=== PATIENT | male | born 1930 | race Caucasian/White ===

== ENCOUNTER 2018-03-12 14:52 | Emergency (ER) | payer MEDICARE ==
[2018-03-12] MEDS ORDERED: HYDROcodone/Acetaminophen 5/325 mg Tablet ONE ×2 (17:07→17:11)
--- NOTE | 2018-03-12 17:09 | CT ---
CT CERVICAL SPINE: 03/12/[address] of the cervical spine was performed following trauma. Axial slices were acquired, then crystal nal and sagittal reconstructions were done. The patient has obviously had prior surgery with an anter ior cervical fusion at the C3 through C6 levels. I do not have any prior scans available for comparis on, however. There is a defect in the anterior arch of C1 in the midline with a considerable amount of pannus seen posterior to the dens of C2. This defect is most likely an old injury, however, on scan 20, one sees a sharper line in the right posterior arch of C1 that I cannot exclude being acute. The C1 to dens d istance is normal and the lateral masses or C1 are not significantly displaced. At C2-C3, there is significant right foraminal narrowing and mild left foraminal narrowing due to ost eophytes. Facet arthritis is very prominent at this level on the right side. At C3-C4, there is mild bilateral foraminal narrowing. At C4-C5, there is moderate foraminal narrowing on the right and mild on the left. At C5-C6, there is mild to moderate bilateral foraminal narrowing. At C6-C7, there is severe bilateral foraminal narrowing and significant facet arthritis there. Below this level, it is difficult to assess the foramina well. No fractures were seen elsewhere in the cerv ical spine. There is really no soft tissue swelling to speak of. No central canal stenosis was seen a t any level. The lung apices were clear and showed no sign of a pneumothorax. IMPRESSION: 1. Defect in the anterior arch of C1 which may be old, but there is a sharp line in the right po sterior arch of C1 that could be acute. I feel it has to be considered acute until proven otherwise. 2. Anterior cervical fusion at C3 through C6. 3. Multilevel degenerative changes with foraminal narrowing at multiple levels as described kareem harrell. Findings discussed with Dr. Irene at [id number] after discussing case further with a corporate travel consultant at [facility]. POS: HOME
--- NOTE | 2018-03-12 17:11 | CT ---
CT OF THE BRAIN WITHOUT CONTRAST 03/12/18 Atrophy and diffuse chronic ischemic changes are seen in the brain. No extra-axial hematoma or parenc hymal hemorrhage was apparent. There is no sign of acute stroke, mass or edema. The calvarium appears intact. The sphenoid sinus and mastoid air cells are clear. IMPRESSION: Atrophy and chronic ischemic changes but no acute findings. Preliminary report discussed with Dr. Irene at 1614 on 03/12/18. POS: HOME
[2018-03-12] MEDS ORDERED: HYDROcodone/Acetaminophen 5/325 mg Tablet PO SCH (17:15)
--- NOTE | 2018-03-12 17:15 | CT ---
CT OF THE FACIAL BONES 03/12/18 Soft tissue swelling is seen, particularly anterior to the left frontal bone. The underlying bones al l appeared intact. No facial fractures were identified. The zygomatic arches, orbital rims, and nasal bones appeared intact. The retro-orbital areas appear normal. There are numerous areas of mucosal sw elling in the various paranasal sinuses and there may even be polyps in some of them. IMPRESSION: 1. Exterior soft tissue swelling but no acute facial fracture seen. 2. Chronic sinus disease as noted. Findings discussed with Dr. Irene at 1614 on 03/12/18. POS: HOME
== END 2018-03-12 17:17 | disposition home or self-care (01) ==
LOC: BURERS 14:52
DX: S19.9XXA Unspecified injury of neck, initial encounter (principal); W01.0XXA Fall on same level from slipping, tripping and stumbling without subsequent striking against object, initial encounter
CPT/HCPCS: 70450; 70486; 72125

== ENCOUNTER 2019-03-15 16:15 | Inpatient (IN) | payer MEDICARE ==
[2019-03-15] MEDS: HYDROcodone/Acetaminophen 5/325 mg Tablet PO PRN (21:18)
[2019-03-15] MEDS: Rifampin 150 MG CAP PO SCH (23:21)
[2019-03-15] MEDS: Enoxaparin Sodium 40 MG/0.4 ML SYRINGE SC SCH (23:22)
[2019-03-16] MEDS: HYDROcodone/Acetaminophen 5/325 mg Tablet PO PRN ×2 (02:06→11:05)
[2019-03-16] MEDS: Vancomycin HCl 1 GM in Sodium Chloride 0.9% 250 ML 250 ML IVPB SCH ×2 (08:07→21:38)
[2019-03-16] MEDS: Famotidine 20 MG TAB PO SCH ×2 (08:12→21:36)
[2019-03-16] MEDS: Gabapentin 300 MG CAP PO SCH ×3 (08:13→21:35)
[2019-03-16] MEDS: Finasteride 5 MG TAB PO SCH (08:13)
[2019-03-16] MEDS: Saccharomyces boulardii 250 MG CAP PO SCH (08:13)
[2019-03-16] MEDS: Aspirin 81 mg Enteric Coated Tablet PO SCH (08:13)
[2019-03-16] MEDS: CEFTAROLINE 600 MG IVPB SCH ×2 (10:59→19:44)
[2019-03-16] MEDS: Rifampin 150 MG CAP PO SCH ×2 (11:03→21:36)
[2019-03-16] MEDS ORDERED: Haloperidol Lactate 5 MG/ML VIAL IM PRN (12:49)
[2019-03-16] MEDS: Terazosin HCl 1 MG CAP PO SCH (21:34)
[2019-03-16] MEDS: Atorvastatin Calcium 40 MG TAB PO SCH (21:35)
[2019-03-16] MEDS: Enoxaparin Sodium 40 MG/0.4 ML SYRINGE SC SCH (21:37)
[2019-03-17] MEDS: CEFTAROLINE 600 MG IVPB SCH (02:06)
[2019-03-17] MEDS: Vancomycin HCl 1 GM in Sodium Chloride 0.9% 250 ML 250 ML IVPB SCH (08:54)
[2019-03-17] MEDS: Aspirin 81 mg Enteric Coated Tablet PO SCH (09:04)
[2019-03-17] MEDS: Gabapentin 300 MG CAP PO SCH ×3 (09:04→21:42)
[2019-03-17] MEDS: Finasteride 5 MG TAB PO SCH (09:04)
[2019-03-17] MEDS: Famotidine 20 MG TAB PO SCH ×2 (09:04→21:43)
[2019-03-17] MEDS: Saccharomyces boulardii 250 MG CAP PO SCH (09:04)
[2019-03-17] MEDS ORDERED: SODIUM CHLORIDE 0.9% IVPB SCH (10:00)
[2019-03-17] MEDS ORDERED: CEFTAROLINE IVPB SCH (10:00)
[2019-03-17] MEDS: Rifampin 150 MG CAP PO SCH ×2 (10:10→21:49)
[2019-03-17] MEDS ORDERED: Ceftaroline 600 MG in Sodium Chloride 0.9% 100 ML IVPB SCH (18:00)
[2019-03-17 18:31] LABS: Vancomycin, Trough 31.7 ug/mL
[2019-03-17] MEDS: Ceftaroline 600 MG in Sodium Chloride 0.9% 100 ML IVPB SCH (21:32)
[2019-03-17] MEDS: Terazosin HCl 1 MG CAP PO SCH (21:41)
[2019-03-17] MEDS: Enoxaparin Sodium 40 MG/0.4 ML SYRINGE SC SCH (21:42)
[2019-03-17] MEDS: Atorvastatin Calcium 40 MG TAB PO SCH (21:49)
[2019-03-18] MEDS: Ceftaroline 600 MG in Sodium Chloride 0.9% 100 ML IVPB SCH ×3 (03:59→21:59)
[2019-03-18] MEDS: Aspirin 81 mg Enteric Coated Tablet PO SCH (10:06)
[2019-03-18] MEDS: Gabapentin 300 MG CAP PO SCH ×3 (10:07→22:05)
[2019-03-18] MEDS: Rifampin 150 MG CAP PO SCH ×2 (10:07→22:05)
[2019-03-18] MEDS: Finasteride 5 MG TAB PO SCH (10:07)
[2019-03-18] MEDS: Saccharomyces boulardii 250 MG CAP PO SCH (10:07)
[2019-03-18] MEDS: Famotidine 20 MG TAB PO SCH ×2 (10:07→22:05)
--- NOTE | 2019-03-18 17:01 | HP ---
PRIMARY CARE PHYSICIAN: Dr. Brock White. 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 HISTORY OF PRESENT ILLNESS: Mr. Pradhan is an 89-year-old male with coronary artery disease, congestive diastolic heart failure, hypertension, and progressive dementia who lives in a alf, presented to ED on March 09 complaining of altered mental status, headache and neck pain. During his evaluation, he was noted to have a temperature of 101.8. The patient's labs showed WBC of 7, hemoglobin of 9, platelet of 115. Sodium of 134, potassium of 3.6, chloride of 105 with lactic acid of 0.8. The patient had a CT of the brain which showed no acute process, but showed chronic ischemic white matter changes. His chest x-ray showed right basilar infiltrate and bilateral pleural effusion. CT of the cervical spine showed non-united old fracture of C1 that became more displaced resulting in worsening of craniocervical subluxation and instability. The patient was admitted with a diagnosis of acute encephalopathy secondary to sepsis, secondary to right basilar pneumonia and with unstable C1 fracture. The patient was referred to Neurosurgery and subsequently placed on cervical collar. The patient also had 2/2 positive set of blood culture showing MRSA. He was then referred to Dr. Smith and diagnosed him with bacteremia associated with scalp abscess with possible seeding to the aortic valve, lungs and C-spine. He had a CT of the chest showing biapical pulmonary nodules, right middle lobe with pleural-based pulmonary nodules surrounded by infiltrate and airspace opacity in the left lower lobe. Trans-echocardiogram was negative for vegetation, his EF showed 50% to 55% with diastolic dysfunction; hence, KIYA was done that showed suspicious mobile mass noted on the aortic valve and aortic valve annulus or sewing ring of the bioprosthetic valve. The leaflets do not appear to have any vegetations or patch. The patient underwent PICC line placement and was placed on vancomycin, ceftaroline, and oral rifampin for the next 6 weeks. During his stay at the main hospital, he had increased confusion, restlessness, and delirium related to sundowning. He was medicated with Benadryl and Haldol as needed. The patient was evaluated by physical therapy and noted that he has decreased functional mobility, decreased balance, decreased strength and generalized deconditioning, hence recommendation for additional physical and occupational therapy. During my exam this afternoon, he is complaining of pain on his neck and shoulder. According to his daughter, he is not eating well. PAST MEDICAL HISTORY: 1. Hypertension. 2. Coronary artery disease. 3. Aortic valve replacement. 4. Hyperlipidemia. 5. Dementia. 6. Gastroesophageal reflux disease. PAST SURGICAL HISTORY: 1. Nephrectomy. 2. Aortic valve replacement. 3. CABG x2. 4. Cervical spine repair. SOCIAL HISTORY: The patient lives in an assisted living. Denies alcohol or tobacco use. FAMILY HISTORY: Noncontributory. ALLERGIES: NONE. MEDICATIONS: 1. DuoNeb every 6 hours p.r.n. for cough and wheezing. 2. Aspirin 81 mg daily. 3. Lipitor 40 mg at bedtime. 4. Ceftaroline 600 mg q.8 hours. 5. Benadryl 25 mg q.8 hours p.r.n. 6. Lovenox 40 mg daily. 7. Pepcid 20 mg b.i.d. 8. Proscar 5 mg daily. 9. Gabapentin 300 mg t.i.d. 10. Haldol 2 mg IM p.r.n. for agitation. 11. Birdseye 5/325 every 6 hours p.r.n. for pain. 12. Zofran 4 mg q.6 hours. 13. Rifampin 300 mg b.i.d. 14. Florastor 250 mg daily. 15. Terazosin 10 mg at bedtime. 16. Vancomycin 1 g q.12 hours. CODE STATUS: Full code. REVIEW OF SYSTEMS: GENERAL: No fever, no chills. Positive for decreased appetite. HEENT: Positive for headache, positive for neck pain. Negative for sore throat. CARDIOVASCULAR: Negative for chest pain. Negative for edema. RESPIRATORY: Positive for cough, occasional wheezing, occasional shortness of breath. GI: Positive for decreased appetite. Negative for nausea, vomiting, or diarrhea. NEUROLOGIC: Positive for intermittent episodes of confusion, delirium secondary to dementia. Positive for neck pain secondary to C1 fracture. PSYCH: No homicidal or suicidal ideation. PHYSICAL EXAMINATION: VITAL SIGNS: Blood pressure of 149/91, temperature of 97.9, pulse of 83, RR of 16, O2 saturation 97% on room air. GENERAL: The patient is alert, oriented x2, person and place. HEENT: Normocephalic, atraumatic. Negative for tonsillopharyngeal congestion. NECK: Positive for cervical collar, decreased range of motion. CHEST AND LUNGS: Symmetrical expansion. Clear to auscultation. HEART: Regular rate, rhythm. Negative for murmur. ABDOMEN: Flat, soft, nontender. Normoactive bowel sounds. EXTREMITIES: Upper extremity, passive movement of all joints are normal. Lower extremities, good range of motion. SKIN: No rashes. No lesions. HEMATOLOGIC: No lymphadenopathy or bruising. PSYCH: Appropriate affect and demeanor. LABORATORY DATA: Reviewed. ASSESSMENT: 1. Sepsis syndrome and bacteremia with methicillin-resistant Staphylococcus aureus. 2. Endocarditis, on prosthetic aortic valve. 3. Encephalopathy, multifactorial. 4. Biapical pulmonary nodules. 5. Non-united old fracture of C1, more displaced resulting into worsening craniocervical subluxation and instability. 6. Coronary artery disease. 7. Congestive diastolic heart failure with EF of 50% to 55%. 8. Hyponatremia. 9. Hypertension. 10. Progressive dementia with sundowning. 11. Gait instability. 12. Poor appetite. 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 Prognosis for significant improvement with reasonable time appears fair. We will monitor for infection, bleeding, pain management and side effects of current medications. He will participate with physical therapy to address strength, range of motion, transfer training, gait transfer and safety training with progression to home exercises. He will participate with occupational therapy to address ADLs. We will reconcile hospital medication and adjust dosage prior to his discharge. sales product manager to address how the patient can be discharged safely in a timely manner back to his alf. Job ID: [id number]
[2019-03-18 20:31] LABS: Vancomycin, Random 22.3 ug/mL (See Comment)
[2019-03-18] MEDS: Terazosin HCl 1 MG CAP PO SCH (22:04)
[2019-03-18] MEDS: HYDROcodone/Acetaminophen 5/325 mg Tablet PO PRN (22:05)
[2019-03-18] MEDS: Atorvastatin Calcium 40 MG TAB PO SCH (22:05)
[2019-03-18] MEDS: Enoxaparin Sodium 40 MG/0.4 ML SYRINGE SC SCH (22:09)
[2019-03-19] MEDS: Ceftaroline 600 MG in Sodium Chloride 0.9% 100 ML IVPB SCH ×3 (04:19→20:52)
[2019-03-19] MEDS: Gabapentin 300 MG CAP PO SCH ×3 (09:20→20:54)
[2019-03-19] MEDS: Aspirin 81 mg Enteric Coated Tablet PO SCH (09:20)
[2019-03-19] MEDS: Rifampin 150 MG CAP PO SCH ×2 (09:20→21:01)
[2019-03-19] MEDS: Saccharomyces boulardii 250 MG CAP PO SCH (09:22)
[2019-03-19] MEDS: Finasteride 5 MG TAB PO SCH (09:22)
[2019-03-19] MEDS: Famotidine 20 MG TAB PO SCH ×2 (09:22→20:54)
[2019-03-19 12:10] LABS: Vancomycin, Random 19.8 ug/mL (See Comment)
[2019-03-19] MEDS: Enoxaparin Sodium 40 MG/0.4 ML SYRINGE SC SCH (20:53)
[2019-03-19] MEDS: Terazosin HCl 1 MG CAP PO SCH (20:54)
[2019-03-19] MEDS: Atorvastatin Calcium 40 MG TAB PO SCH (20:54)
[2019-03-19] MEDS: Vancomycin HCl 500 MG in Sodium Chloride 0.9% 100 ML IVPB SCH (20:55)
[2019-03-20] MEDS: Ceftaroline 600 MG in Sodium Chloride 0.9% 100 ML IVPB SCH ×3 (04:51→20:42)
[2019-03-20 05:25] LABS: Anion Gap 13 mmol/L (10-20); BUN (Urea Nitrogen) 20 mg/dL (8.4-25.7); Calc. Creatinine Clearance 23 mL/min (70-130); Calcium 8.5 mg/dL (7.8-10.44); Carbon Dioxide 24 mmol/L (23-31); Chloride 101 mmol/L (98-107); Estimated GFR-MDRD 26; Glucose 83 mg/dL (83-110); Potassium 3.5 mmol/L (3.5-5.1); Sodium 134 mmol/L (136-145)
[2019-03-20] MEDS: Aspirin 81 mg Enteric Coated Tablet PO SCH (08:40)
[2019-03-20] MEDS: Vancomycin HCl 500 MG in Sodium Chloride 0.9% 100 ML IVPB SCH (08:40)
[2019-03-20] MEDS: Saccharomyces boulardii 250 MG CAP PO SCH (08:41)
[2019-03-20] MEDS: Gabapentin 300 MG CAP PO SCH ×3 (08:41→20:43)
[2019-03-20] MEDS: Famotidine 20 MG TAB PO SCH ×2 (08:41→20:43)
[2019-03-20] MEDS: Finasteride 5 MG TAB PO SCH (08:41)
[2019-03-20 09:18] LABS: Hemoglobin 8.2 g/dL (14.0-18.0); Platelet Count 209 thou/uL (130-400)
[2019-03-20] MEDS: Rifampin 150 MG CAP PO SCH ×2 (09:46→21:56)
[2019-03-20] MEDS: Atorvastatin Calcium 40 MG TAB PO SCH (20:42)
[2019-03-20] MEDS: Enoxaparin Sodium 40 MG/0.4 ML SYRINGE SC SCH (20:43)
[2019-03-20] MEDS: Terazosin HCl 1 MG CAP PO SCH (20:58)
[2019-03-21] MEDS ORDERED: Haloperidol Lactate 5 MG/ML VIAL ONE (00:38)
[2019-03-21] MEDS: diphenhydrAMINE 25 MG CAP PO PRN (01:38)
[2019-03-21] MEDS: Ceftaroline 600 MG in Sodium Chloride 0.9% 100 ML IVPB SCH ×3 (03:52→20:51)
[2019-03-21 08:35] LABS: Vancomycin, Trough 20.4 ug/mL
[2019-03-21] MEDS: Rifampin 150 MG CAP PO SCH ×2 (10:04→21:02)
[2019-03-21] MEDS: Gabapentin 300 MG CAP PO SCH ×3 (10:04→21:02)
[2019-03-21] MEDS: Saccharomyces boulardii 250 MG CAP PO SCH (10:04)
[2019-03-21] MEDS: Aspirin 81 mg Enteric Coated Tablet PO SCH (10:05)
[2019-03-21] MEDS: Finasteride 5 MG TAB PO SCH (10:05)
[2019-03-21] MEDS: Famotidine 20 MG TAB PO SCH ×2 (10:05→21:02)
[2019-03-21] MEDS: Vancomycin HCl 500 MG in Sodium Chloride 0.9% 100 ML IVPB SCH (14:15)
[2019-03-21] MEDS: Enoxaparin Sodium 40 MG/0.4 ML SYRINGE SC SCH (20:52)
[2019-03-21] MEDS: Atorvastatin Calcium 40 MG TAB PO SCH (21:03)
[2019-03-21] MEDS: Donepezil HCl 10 MG TAB PO SCH (21:03)
[2019-03-21] MEDS: Terazosin HCl 1 MG CAP PO SCH (21:04)
[2019-03-22] MEDS: Ceftaroline 600 MG in Sodium Chloride 0.9% 100 ML IVPB SCH ×3 (04:00→20:14)
[2019-03-22 05:58] LABS: #Basophils 0.1 thou/uL (0.0-0.2); #Eosinphils 0.3 thou/uL (0.0-0.7); #Lymphocytes 0.8 thou/uL (1.20-3.40); #Monocytes 0.6 thou/uL (0.11-0.59); #Neutrophils 3.9 thou/uL (1.40-6.50); %Basophils 0.9 % (0.0-1.0); %Eosinophils 5.8 % (0.0-10.0); %Lymphocytes 14.2 % (21.0-51.0); %Monocytes 10.1 % (0.0-10.0); Hemoglobin 7.6 g/dL (14.0-18.0); Mean Corpuscular Hemoglobin 29.4 pg (27.0-31.0); Mean Corpuscular Volume 91.7 fL (78.0-98.0); Mean Platelet Volume 5.7 fL (7.4-10.4); Platelet Count 224 thou/uL (130-400); RBC Distribution Width 13.7 % (11.5-14.5); Red Blood Cell (RBC) Count 2.58 mill/uL (4.70-6.10); White Blood Cell (WBC) Count 5.6 thou/uL (4.8-10.8)
[2019-03-22 06:01] LABS: ALT (SGPT) 23 U/L (8-55); AST (SGOT) 25 U/L (5-34); Albumin 2.4 g/dL (3.4-4.8); Alkaline Phosphatase 58 U/L (40-150); Anion Gap 12 mmol/L (10-20); BUN (Urea Nitrogen) 20 mg/dL (8.4-25.7); Bilirubin, Total 0.3 mg/dL (0.2-1.2); Calc. Creatinine Clearance 25 mL/min (70-130); Calcium 8.2 mg/dL (7.8-10.44); Carbon Dioxide 25 mmol/L (23-31); Chloride 100 mmol/L (98-107); Estimated GFR-MDRD 30; Globulin 2.5 g/dL (2.4-3.5); Glucose 82 mg/dL (83-110); Potassium 3.7 mmol/L (3.5-5.1); Protein, Total 4.9 g/dL (5.8-8.1); Sodium 133 mmol/L (136-145)
[2019-03-22] MEDS: Famotidine 20 MG TAB PO SCH ×2 (09:07→20:21)
[2019-03-22] MEDS: Finasteride 5 MG TAB PO SCH (09:07)
[2019-03-22] MEDS: Gabapentin 300 MG CAP PO SCH ×3 (09:07→20:21)
[2019-03-22] MEDS: Amlodipine 10 MG TAB PO SCH (09:07)
[2019-03-22] MEDS: Saccharomyces boulardii 250 MG CAP PO SCH (09:07)
[2019-03-22] MEDS: Aspirin 81 mg Enteric Coated Tablet PO SCH (09:08)
[2019-03-22] MEDS: Rifampin 150 MG CAP PO SCH ×2 (09:12→20:19)
[2019-03-22] MEDS: Vancomycin HCl 500 MG in Sodium Chloride 0.9% 100 ML IVPB SCH ×4 (09:50→13:12)
[2019-03-22] MEDS: CEFTAROLINE 600 MG IVPB SCH (09:50)
[2019-03-22] MEDS: HYDROcodone/Acetaminophen 5/325 mg Tablet PO PRN ×2 (12:04→20:19)
[2019-03-22] MEDS: Donepezil HCl 10 MG TAB PO SCH (20:20)
[2019-03-22] MEDS: Atorvastatin Calcium 40 MG TAB PO SCH (20:21)
[2019-03-22] MEDS: Enoxaparin Sodium 40 MG/0.4 ML SYRINGE SC SCH (20:21)
[2019-03-22] MEDS: Terazosin HCl 1 MG CAP PO SCH (20:21)
[2019-03-23] MEDS: Ceftaroline 600 MG in Sodium Chloride 0.9% 100 ML IVPB SCH ×3 (03:52→20:43)
[2019-03-23 06:09] LABS: Hemoglobin 10.2 g/dL (14.0-18.0)
[2019-03-23 07:18] LABS: Anion Gap 11 mmol/L (10-20); BUN (Urea Nitrogen) 18 mg/dL (8.4-25.7); Calc. Creatinine Clearance 25 mL/min (70-130); Calcium 8.5 mg/dL (7.8-10.44); Carbon Dioxide 25 mmol/L (23-31); Chloride 101 mmol/L (98-107); Estimated GFR-MDRD 30; Glucose 79 mg/dL (83-110); Potassium 3.8 mmol/L (3.5-5.1); Sodium 133 mmol/L (136-145)
[2019-03-23] MEDS: Finasteride 5 MG TAB PO SCH (08:44)
[2019-03-23] MEDS: Famotidine 20 MG TAB PO SCH ×2 (08:45→20:39)
[2019-03-23] MEDS: Aspirin 81 mg Enteric Coated Tablet PO SCH (08:45)
[2019-03-23] MEDS: Rifampin 150 MG CAP PO SCH ×2 (08:45→20:37)
[2019-03-23] MEDS: Amlodipine 10 MG TAB PO SCH (08:46)
[2019-03-23] MEDS: Saccharomyces boulardii 250 MG CAP PO SCH (08:46)
[2019-03-23] MEDS: Gabapentin 300 MG CAP PO SCH ×3 (08:46→20:38)
[2019-03-23 12:26] LABS: Vancomycin, Trough 18.4 ug/mL
[2019-03-23] MEDS: Vancomycin HCl 500 MG in Sodium Chloride 0.9% 100 ML IVPB SCH (13:49)
[2019-03-23] MEDS: Terazosin HCl 1 MG CAP PO SCH (20:38)
[2019-03-23] MEDS: Donepezil HCl 10 MG TAB PO SCH (20:38)
[2019-03-23] MEDS: diphenhydrAMINE 25 MG CAP PO PRN (20:39)
[2019-03-23] MEDS: Atorvastatin Calcium 40 MG TAB PO SCH (20:39)
[2019-03-23] MEDS: HYDROcodone/Acetaminophen 5/325 mg Tablet PO PRN (20:39)
[2019-03-23] MEDS: Enoxaparin Sodium 40 MG/0.4 ML SYRINGE SC SCH (20:40)
[2019-03-24] MEDS: Ceftaroline 600 MG in Sodium Chloride 0.9% 100 ML IVPB SCH ×3 (04:13→20:26)
[2019-03-24 05:38] LABS: Hemoglobin 9.8 g/dL (14.0-18.0); Platelet Count 203 thou/uL (130-400)
[2019-03-24] MEDS: Amlodipine 10 MG TAB PO SCH (10:40)
[2019-03-24] MEDS: Rifampin 150 MG CAP PO SCH ×2 (10:40→20:25)
[2019-03-24] MEDS: Finasteride 5 MG TAB PO SCH (10:41)
[2019-03-24] MEDS: Gabapentin 300 MG CAP PO SCH ×3 (10:41→20:25)
[2019-03-24] MEDS: Aspirin 81 mg Enteric Coated Tablet PO SCH (10:41)
[2019-03-24] MEDS: Famotidine 20 MG TAB PO SCH ×2 (10:41→20:25)
[2019-03-24] MEDS: Saccharomyces boulardii 250 MG CAP PO SCH (10:41)
[2019-03-24] MEDS: Vancomycin HCl 500 MG in Sodium Chloride 0.9% 100 ML IVPB SCH (14:30)
[2019-03-24] MEDS: Enoxaparin Sodium 40 MG/0.4 ML SYRINGE SC SCH (20:22)
[2019-03-24] MEDS: Terazosin HCl 1 MG CAP PO SCH (20:23)
[2019-03-24] MEDS: HYDROcodone/Acetaminophen 5/325 mg Tablet PO PRN (20:24)
[2019-03-24] MEDS: Atorvastatin Calcium 40 MG TAB PO SCH (20:25)
[2019-03-24] MEDS: diphenhydrAMINE 25 MG CAP PO PRN (20:25)
[2019-03-24] MEDS: Donepezil HCl 10 MG TAB PO SCH (20:25)
[2019-03-25] MEDS: Ceftaroline 600 MG in Sodium Chloride 0.9% 100 ML IVPB SCH ×3 (04:14→20:22)
[2019-03-25] MEDS: Aspirin 81 mg Enteric Coated Tablet PO SCH (10:06)
[2019-03-25] MEDS: Amlodipine 10 MG TAB PO SCH (10:06)
[2019-03-25] MEDS: Finasteride 5 MG TAB PO SCH (10:07)
[2019-03-25] MEDS: Saccharomyces boulardii 250 MG CAP PO SCH (10:07)
[2019-03-25] MEDS: Gabapentin 300 MG CAP PO SCH ×3 (10:07→20:25)
[2019-03-25] MEDS: Famotidine 20 MG TAB PO SCH ×2 (10:07→20:25)
[2019-03-25] MEDS: Rifampin 150 MG CAP PO SCH ×2 (10:10→20:27)
[2019-03-25 12:18] LABS: Vancomycin, Trough 16.5 ug/mL
[2019-03-25] MEDS: Vancomycin HCl 500 MG in Sodium Chloride 0.9% 100 ML IVPB SCH (13:30)
[2019-03-25] MEDS: Terazosin HCl 1 MG CAP PO SCH (20:24)
[2019-03-25] MEDS: HYDROcodone/Acetaminophen 5/325 mg Tablet PO PRN (20:25)
[2019-03-25] MEDS: Atorvastatin Calcium 40 MG TAB PO SCH (20:26)
[2019-03-25] MEDS: Donepezil HCl 10 MG TAB PO SCH (20:27)
[2019-03-25] MEDS: diphenhydrAMINE 25 MG CAP PO PRN (20:27)
[2019-03-26] MEDS: HYDROcodone/Acetaminophen 5/325 mg Tablet PO PRN ×2 (05:14→20:22)
[2019-03-26] MEDS: Enoxaparin Sodium 40 MG/0.4 ML SYRINGE SC SCH (05:21)
[2019-03-26 05:44] LABS: Hemoglobin 10.1 g/dL (14.0-18.0); Platelet Count 153 thou/uL (130-400)
[2019-03-26] MEDS: Saccharomyces boulardii 250 MG CAP PO SCH (10:19)
[2019-03-26] MEDS: Gabapentin 300 MG CAP PO SCH ×3 (10:20→20:23)
[2019-03-26] MEDS: Finasteride 5 MG TAB PO SCH (10:20)
[2019-03-26] MEDS: Famotidine 20 MG TAB PO SCH ×2 (10:20→20:24)
[2019-03-26] MEDS: Aspirin 81 mg Enteric Coated Tablet PO SCH (10:20)
[2019-03-26] MEDS: Amlodipine 10 MG TAB PO SCH (10:20)
[2019-03-26] MEDS: Rifampin 150 MG CAP PO SCH ×2 (10:53→21:00)
[2019-03-26] MEDS: Vancomycin HCl 500 MG in Sodium Chloride 0.9% 100 ML IVPB SCH (13:00)
[2019-03-26] MEDS: Terazosin HCl 1 MG CAP PO SCH (20:23)
[2019-03-26] MEDS: Atorvastatin Calcium 40 MG TAB PO SCH (20:24)
[2019-03-26] MEDS: Donepezil HCl 10 MG TAB PO SCH (20:24)
[2019-03-26] MEDS: Enoxaparin Sodium 30 MG/0.3 ML SYRINGE SC SCH (20:25)
[2019-03-27] MEDS: Rifampin 150 MG CAP PO SCH ×2 (09:30→22:32)
[2019-03-27] MEDS: Aspirin 81 mg Enteric Coated Tablet PO SCH (09:31)
[2019-03-27] MEDS: Amlodipine 10 MG TAB PO SCH (09:31)
[2019-03-27] MEDS: Gabapentin 300 MG CAP PO SCH ×3 (09:31→20:40)
[2019-03-27] MEDS: Famotidine 20 MG TAB PO SCH ×2 (09:31→20:39)
[2019-03-27] MEDS: Finasteride 5 MG TAB PO SCH (09:32)
[2019-03-27] MEDS: Saccharomyces boulardii 250 MG CAP PO SCH (09:32)
[2019-03-27] MEDS: Vancomycin HCl 500 MG in Sodium Chloride 0.9% 100 ML IVPB SCH (13:44)
[2019-03-27] MEDS: Donepezil HCl 10 MG TAB PO SCH (20:39)
[2019-03-27] MEDS: Enoxaparin Sodium 30 MG/0.3 ML SYRINGE SC SCH (20:39)
[2019-03-27] MEDS: Terazosin HCl 5 MG CAP PO SCH (20:39)
[2019-03-27] MEDS: Atorvastatin Calcium 40 MG TAB PO SCH (20:39)
[2019-03-28] MEDS: HYDROcodone/Acetaminophen 5/325 mg Tablet PO PRN ×2 (01:44→21:58)
[2019-03-28] MEDS: diphenhydrAMINE 25 MG CAP PO PRN ×2 (01:44→21:58)
[2019-03-28 05:58] LABS: Hemoglobin 10.3 g/dL (14.0-18.0); Platelet Count 108 thou/uL (130-400)
[2019-03-28] MEDS: Famotidine 20 MG TAB PO SCH ×2 (08:49→20:30)
[2019-03-28] MEDS: Rifampin 150 MG CAP PO SCH ×2 (08:50→21:58)
[2019-03-28] MEDS: Amlodipine 10 MG TAB PO SCH (08:50)
[2019-03-28] MEDS: Finasteride 5 MG TAB PO SCH (08:50)
[2019-03-28] MEDS: Saccharomyces boulardii 250 MG CAP PO SCH (08:50)
[2019-03-28] MEDS: Aspirin 81 mg Enteric Coated Tablet PO SCH (08:50)
[2019-03-28] MEDS: Gabapentin 300 MG CAP PO SCH ×3 (08:50→20:30)
[2019-03-28 12:38] LABS: Vancomycin, Trough 15.9 ug/mL
[2019-03-28] MEDS: Vancomycin HCl 500 MG in Sodium Chloride 0.9% 100 ML IVPB SCH (13:42)
[2019-03-28] MEDS: Enoxaparin Sodium 30 MG/0.3 ML SYRINGE SC SCH (20:29)
[2019-03-28] MEDS: Donepezil HCl 10 MG TAB PO SCH (20:30)
[2019-03-28] MEDS: Atorvastatin Calcium 40 MG TAB PO SCH (20:30)
[2019-03-28] MEDS: Terazosin HCl 5 MG CAP PO SCH (20:30)
[2019-03-29 05:32] LABS: ALT (SGPT) 14 U/L (8-55); AST (SGOT) 17 U/L (5-34); Albumin 2.4 g/dL (3.4-4.8); Alkaline Phosphatase 60 U/L (40-150); Anion Gap 14 mmol/L (10-20); BUN (Urea Nitrogen) 14 mg/dL (8.4-25.7); Bilirubin, Total 0.3 mg/dL (0.2-1.2); Calc. Creatinine Clearance 26 mL/min (70-130); Calcium 7.9 mg/dL (7.8-10.44); Carbon Dioxide 22 mmol/L (23-31); Chloride 101 mmol/L (98-107); Estimated GFR-MDRD 32; Globulin 2.5 g/dL (2.4-3.5); Glucose 78 mg/dL (83-110); Potassium 3.7 mmol/L (3.5-5.1); Protein, Total 4.9 g/dL (5.8-8.1); Sodium 133 mmol/L (136-145)
[2019-03-29 06:06] LABS: #Basophils 0.1 thou/uL (0.0-0.2); #Eosinphils 0.4 thou/uL (0.0-0.7); #Lymphocytes 0.8 thou/uL (1.20-3.40); #Monocytes 0.6 thou/uL (0.11-0.59); #Neutrophils 2.5 thou/uL (1.40-6.50); %Basophils 1.2 % (0.0-1.0); %Lymphocytes 18.9 % (21.0-51.0); %Monocytes 13.7 % (0.0-10.0); %Neutrophils 57.2 % (42.0-75.0); Hemoglobin 9.3 g/dL (14.0-18.0); Mean Corpuscular HGB CONC 32.8 g/dL (32.0-36.0); Mean Corpuscular Hemoglobin 29.6 pg (27.0-31.0); Mean Corpuscular Volume 90.2 fL (78.0-98.0); Mean Platelet Volume 6.4 fL (7.4-10.4); Platelet Count 90 thou/uL (130-400); RBC Distribution Width 13.5 % (11.5-14.5); Red Blood Cell (RBC) Count 3.16 mill/uL (4.70-6.10); White Blood Cell (WBC) Count 4.4 thou/uL (4.8-10.8)
[2019-03-29 06:07] LABS: Platelet Morphology Comment Appears Decreased
[2019-03-29 06:08] LABS: MDiff Complete? YES; Manual Diff?? NO
[2019-03-29] MEDS: Amlodipine 10 MG TAB PO SCH (10:06)
[2019-03-29] MEDS: Gabapentin 300 MG CAP PO SCH ×3 (10:07→20:45)
[2019-03-29] MEDS: Rifampin 150 MG CAP PO SCH ×2 (10:07→22:08)
[2019-03-29] MEDS: Aspirin 81 mg Enteric Coated Tablet PO SCH (10:07)
[2019-03-29] MEDS: Famotidine 20 MG TAB PO SCH ×2 (10:07→20:46)
[2019-03-29] MEDS: Saccharomyces boulardii 250 MG CAP PO SCH (10:07)
[2019-03-29] MEDS: Finasteride 5 MG TAB PO SCH (10:07)
[2019-03-29] MEDS: Vancomycin HCl 500 MG in Sodium Chloride 0.9% 100 ML IVPB SCH (13:35)
[2019-03-29] MEDS: Terazosin HCl 5 MG CAP PO SCH (20:45)
[2019-03-29] MEDS: Atorvastatin Calcium 40 MG TAB PO SCH (20:45)
[2019-03-29] MEDS: Enoxaparin Sodium 30 MG/0.3 ML SYRINGE SC SCH (20:46)
[2019-03-29] MEDS: Donepezil HCl 10 MG TAB PO SCH (20:46)
[2019-03-29] MEDS: HYDROcodone/Acetaminophen 5/325 mg Tablet PO PRN (22:07)
[2019-03-29] MEDS: diphenhydrAMINE 25 MG CAP PO PRN (22:08)
[2019-03-30 05:26] LABS: Hemoglobin 9.6 g/dL (14.0-18.0); Platelet Count 78 thou/uL (130-400)
[2019-03-30] MEDS: Amlodipine 10 MG TAB PO SCH (09:15)
[2019-03-30] MEDS: Finasteride 5 MG TAB PO SCH (09:15)
[2019-03-30] MEDS: Gabapentin 300 MG CAP PO SCH ×3 (09:15→22:00)
[2019-03-30] MEDS: Aspirin 81 mg Enteric Coated Tablet PO SCH (09:15)
[2019-03-30] MEDS: Famotidine 20 MG TAB PO SCH ×2 (09:15→22:00)
[2019-03-30] MEDS: Saccharomyces boulardii 250 MG CAP PO SCH (10:21)
[2019-03-30] MEDS: Rifampin 150 MG CAP PO SCH ×2 (10:21→21:59)
[2019-03-30] MEDS: Vancomycin HCl 500 MG in Sodium Chloride 0.9% 100 ML IVPB SCH (13:05)
[2019-03-30] MEDS: Terazosin HCl 5 MG CAP PO SCH (21:59)
[2019-03-30] MEDS: diphenhydrAMINE 25 MG CAP PO PRN (21:59)
[2019-03-30] MEDS: HYDROcodone/Acetaminophen 5/325 mg Tablet PO PRN (22:00)
[2019-03-30] MEDS: Donepezil HCl 10 MG TAB PO SCH (22:00)
[2019-03-30] MEDS: Atorvastatin Calcium 40 MG TAB PO SCH (22:00)
[2019-03-30] MEDS: Enoxaparin Sodium 30 MG/0.3 ML SYRINGE SC SCH (22:22)
[2019-03-31] MEDS: Famotidine 20 MG TAB PO SCH ×2 (09:19→20:50)
[2019-03-31] MEDS: Saccharomyces boulardii 250 MG CAP PO SCH (09:19)
[2019-03-31] MEDS: Aspirin 81 mg Enteric Coated Tablet PO SCH (09:19)
[2019-03-31] MEDS: Amlodipine 10 MG TAB PO SCH (09:20)
[2019-03-31] MEDS: Finasteride 5 MG TAB PO SCH (09:20)
[2019-03-31] MEDS: Gabapentin 300 MG CAP PO SCH ×3 (09:20→20:50)
[2019-03-31] MEDS: Rifampin 150 MG CAP PO SCH ×2 (11:03→21:24)
[2019-03-31 12:08] LABS: Vancomycin, Trough 13.8 ug/mL
[2019-03-31] MEDS: Vancomycin HCl 500 MG in Sodium Chloride 0.9% 100 ML IVPB SCH (12:53)
[2019-03-31] MEDS: Atorvastatin Calcium 40 MG TAB PO SCH (20:49)
[2019-03-31] MEDS: Donepezil HCl 10 MG TAB PO SCH (20:50)
[2019-03-31] MEDS: Terazosin HCl 5 MG CAP PO SCH (20:50)
[2019-03-31] MEDS: Enoxaparin Sodium 30 MG/0.3 ML SYRINGE SC SCH (20:50)
[2019-03-31] MEDS: diphenhydrAMINE 25 MG CAP PO PRN (21:24)
[2019-04-01 05:10] LABS: Platelet Count 39 thou/uL (130-400)
[2019-04-01] MEDS: Finasteride 5 MG TAB PO SCH (08:20)
[2019-04-01] MEDS: Aspirin 81 mg Enteric Coated Tablet PO SCH (08:21)
[2019-04-01] MEDS: Gabapentin 300 MG CAP PO SCH ×3 (08:21→20:09)
[2019-04-01] MEDS: Famotidine 20 MG TAB PO SCH ×2 (08:21→20:10)
[2019-04-01] MEDS: Saccharomyces boulardii 250 MG CAP PO SCH (08:21)
[2019-04-01] MEDS: Rifampin 150 MG CAP PO SCH ×2 (08:22→21:38)
[2019-04-01] MEDS: Amlodipine 10 MG TAB PO SCH (08:22)
[2019-04-01] MEDS: Losartan Potassium 50 MG TAB PO SCH (08:23)
[2019-04-01] MEDS: Vancomycin HCl 750 MG in Sodium Chloride 0.9% 250 ML 250 ML IVPB SCH ×2 (12:58→13:47)
[2019-04-01] MEDS: Terazosin HCl 5 MG CAP PO SCH (20:09)
[2019-04-01] MEDS: Donepezil HCl 10 MG TAB PO SCH (20:09)
[2019-04-01] MEDS: Atorvastatin Calcium 40 MG TAB PO SCH (20:09)
[2019-04-01] MEDS: diphenhydrAMINE 25 MG CAP PO PRN (21:38)
[2019-04-02 04:50] LABS: ALT (SGPT) 11 U/L (8-55); AST (SGOT) 17 U/L (5-34); Albumin 2.7 g/dL (3.4-4.8); Alkaline Phosphatase 60 U/L (40-150); Anion Gap 13 mmol/L (10-20); BUN (Urea Nitrogen) 18 mg/dL (8.4-25.7); Bilirubin, Total 0.4 mg/dL (0.2-1.2); Calc. Creatinine Clearance 26 mL/min (70-130); Calcium 8.4 mg/dL (7.8-10.44); Carbon Dioxide 24 mmol/L (23-31); Chloride 104 mmol/L (98-107); Estimated GFR-MDRD 31; Globulin 2.7 g/dL (2.4-3.5); Glucose 69 mg/dL (83-110); Potassium 3.6 mmol/L (3.5-5.1); Protein, Total 5.4 g/dL (5.8-8.1); Sodium 137 mmol/L (136-145)
[2019-04-02 04:56] LABS: Hemoglobin 9.3 g/dL (14.0-18.0); Mean Corpuscular HGB CONC 33.3 g/dL (32.0-36.0); Mean Corpuscular Hemoglobin 29.9 pg (27.0-31.0); Mean Corpuscular Volume 89.7 fL (78.0-98.0); Mean Platelet Volume 6.3 fL (7.4-10.4); Platelet Count 49 thou/uL (130-400); RBC Distribution Width 13.7 % (11.5-14.5)
[2019-04-02 05:06] LABS: Band 6 % (5-11); Eosinophils 8 % (0-10); Lymphocytes 21 % (21-51); MDiff Complete? YES; Monocytes 11 % (0-10)
[2019-04-02 05:07] LABS: Neutrophil 54 % (42-75)
[2019-04-02 05:08] LABS: Ovalocytes SLIGHT = 2-5 cells (100X) (0-1/hpf); Platelet Morphology Comment Appears Decreased; Small Platelets SLIGHT
[2019-04-02 05:39] LABS: INR-International Normal Ratio 1.2; PTT 47.3 SEC (22.9-36.1); Prothrombin Time 15.5 SEC (12.0-14.7)
[2019-04-02 05:40] LABS: D-Dimer Test 2.72 *mcg/mL (0.27-0.43)
[2019-04-02] MEDS: Gabapentin 300 MG CAP PO SCH ×3 (09:08→22:08)
[2019-04-02] MEDS: Finasteride 5 MG TAB PO SCH (09:08)
[2019-04-02] MEDS: Losartan Potassium 50 MG TAB PO SCH (09:09)
[2019-04-02] MEDS: Aspirin 81 mg Enteric Coated Tablet PO SCH (09:09)
[2019-04-02] MEDS: Famotidine 20 MG TAB PO SCH ×2 (09:10→22:09)
[2019-04-02] MEDS: Amlodipine 10 MG TAB PO SCH (09:10)
[2019-04-02] MEDS: Saccharomyces boulardii 250 MG CAP PO SCH (09:10)
[2019-04-02] MEDS: Rifampin 150 MG CAP PO SCH ×2 (09:54→22:08)
[2019-04-02 12:26] LABS: Vancomycin, Trough 16.2 ug/mL
[2019-04-02] MEDS: Vancomycin HCl 750 MG in Sodium Chloride 0.9% 250 ML 250 ML IVPB SCH (13:13)
[2019-04-02] MEDS: Donepezil HCl 10 MG TAB PO SCH (22:08)
[2019-04-02] MEDS: Terazosin HCl 5 MG CAP PO SCH (22:08)
[2019-04-02] MEDS: Atorvastatin Calcium 40 MG TAB PO SCH (22:08)
[2019-04-02] MEDS: diphenhydrAMINE 25 MG CAP PO PRN (22:09)
[2019-04-03] MEDS: Saccharomyces boulardii 250 MG CAP PO SCH (08:30)
[2019-04-03] MEDS: Finasteride 5 MG TAB PO SCH (08:30)
[2019-04-03] MEDS: Aspirin 81 mg Enteric Coated Tablet PO SCH (08:30)
[2019-04-03] MEDS: Gabapentin 300 MG CAP PO SCH ×3 (08:30→20:12)
[2019-04-03] MEDS: Rifampin 150 MG CAP PO SCH ×2 (08:31→21:51)
[2019-04-03] MEDS: Amlodipine 10 MG TAB PO SCH (08:31)
[2019-04-03] MEDS: Losartan Potassium 50 MG TAB PO SCH (08:31)
[2019-04-03] MEDS: Famotidine 20 MG TAB PO SCH ×2 (08:32→20:11)
[2019-04-03 08:34] LABS: #Eosinphils 0.5 thou/uL (0.0-0.7); #Lymphocytes 1.1 thou/uL (1.20-3.40); #Monocytes 0.5 thou/uL (0.11-0.59); #Neutrophils 2.6 thou/uL (1.40-6.50); %Basophils 1.1 % (0.0-1.0); %Eosinophils 9.6 % (0.0-10.0); %Lymphocytes 23.1 % (21.0-51.0); %Monocytes 11.2 % (0.0-10.0); Hemoglobin 9.4 g/dL (14.0-18.0); Mean Corpuscular HGB CONC 32.6 g/dL (32.0-36.0); Mean Corpuscular Hemoglobin 29.5 pg (27.0-31.0); Mean Corpuscular Volume 90.6 fL (78.0-98.0); Mean Platelet Volume 6.9 fL (7.4-10.4); Platelet Count 54 thou/uL (130-400); Platelet Morphology Comment PT HAS HX OF LOW PLATELET COUNT; RBC Distribution Width 13.4 % (11.5-14.5); Red Blood Cell (RBC) Count 3.19 mill/uL (4.70-6.10); White Blood Cell (WBC) Count 4.7 thou/uL (4.8-10.8)
[2019-04-03 09:13] LABS: MDiff Complete? YES; Manual Diff?? NO
[2019-04-03] MEDS: HYDROcodone/Acetaminophen 5/325 mg Tablet PO PRN (14:14)
[2019-04-03] MEDS ORDERED: DAPTOmycin 500 MG VIAL SLOW IVP SCH (18:00)
[2019-04-03] MEDS: Terazosin HCl 5 MG CAP PO SCH (20:11)
[2019-04-03] MEDS: DAPTOmycin 500 MG in Sodium Chloride 0.9% 100 ML IVPB SCH (20:11)
[2019-04-03] MEDS: Atorvastatin Calcium 40 MG TAB PO SCH (20:12)
[2019-04-03] MEDS: Donepezil HCl 10 MG TAB PO SCH (20:12)
--- NOTE | 2019-04-03 21:47 | PRG ---
DATE OF SERVICE: 03/24/2019 SUBJECTIVE: The patient is having restlessness at night, requiring Haldol and Benadryl. He had a drop of hemoglobin from 10 from March 12 to 7.6 on 03/22, status post 2 units of blood transfusion, hemoglobin went up to 10.2. He is eating. He is slightly improving. He is still complaining of pain in his neck secondary to his cervical collar. OBJECTIVE: VITAL SIGNS: Temperature 98.7, blood pressure 169/79, pulse of 94, RR of 18, O2 saturation 94%, and weight of 162 pounds. GENERAL: The patient is alert, oriented to person and place, not in respiratory distress. HEENT: Normocephalic, atraumatic. Pupils equal and reactive to light. Negative for tonsillopharyngeal congestion. NECK: Positive for decreased range of motion on cervical collar. Negative for JVD. CHEST AND LUNGS: Symmetrical expansion, clear to auscultation bilaterally. HEART: Regular rate and rhythm. Negative for murmur. ABDOMEN: Flat, soft, nontender. Normoactive bowel sounds. EXTREMITIES: Good peripheral pulses. No clubbing, no cyanosis, no edema. NEUROLOGIC: Affect normal. No focal deficits. LABORATORY DATA: Hemoglobin 9.8, hematocrit 30.4, creatinine 2.0. ASSESSMENT: 1. Sepsis/bacteremia with methicillin-resistant Staphylococcus aureus on vancomycin, ceftaroline, and rifampin. Plan to continue IV antibiotics for 8 weeks. 2. Endocarditis with prosthetic valve. 3. Encephalopathy, multifactorial. 4. Acute renal insufficiency, continue to monitor. Adjusted dosage of ceftaroline and vancomycin. 5. Deep venous thrombosis prophylaxis, Lovenox renally dosed. 6. Poor appetite. 7. Cervical fracture (C1) on cervical collar. 8. Hypertension, uncontrolled. 9. Dementia, on Haldol and Benadryl as needed for agitation. 10. Physical deconditioning. Continue physical and occupational therapy. Job ID: [id number]
[2019-04-03] MEDS: diphenhydrAMINE 25 MG CAP PO PRN (22:58)
[2019-04-03] MEDS: Ondansetron ODT 4 MG TAB PO PRN (23:28)
[2019-04-04] MEDS: Famotidine 20 MG TAB PO SCH ×2 (08:43→21:26)
[2019-04-04] MEDS: Losartan Potassium 50 MG TAB PO SCH (08:43)
[2019-04-04] MEDS: Aspirin 81 mg Enteric Coated Tablet PO SCH (08:43)
[2019-04-04] MEDS: Amlodipine 10 MG TAB PO SCH (08:43)
[2019-04-04] MEDS: Saccharomyces boulardii 250 MG CAP PO SCH (08:44)
[2019-04-04] MEDS: Finasteride 5 MG TAB PO SCH (08:44)
[2019-04-04] MEDS: Gabapentin 300 MG CAP PO SCH ×3 (08:44→21:26)
[2019-04-04] MEDS: Rifampin 150 MG CAP PO SCH ×2 (11:45→21:28)
[2019-04-04] MEDS: Ondansetron ODT 4 MG TAB PO PRN (11:54)
[2019-04-04] MEDS: Donepezil HCl 10 MG TAB PO SCH (21:26)
[2019-04-04] MEDS: Terazosin HCl 5 MG CAP PO SCH (21:26)
--- NOTE | 2019-04-04 21:28 | RAD ---
CERVICAL SPINE 04/04/19 Comparison is made with an 03/09/19 CT study. Several cross-table views were attempted as well as an AP and open mouth views. Overall, the patient does not image very well in this region. I am hard pressed to define the C1 frac ture on these plain radiographs. The C1 to dens distance is not excessive, but the anterior arch of C 1 is difficult to see, presumably secondary to diastasis of fragments here. There has been a prior an terior cervical fusion of C4 through C7. IMPRESSION: It is difficult to define the known fracture at the C1 level. There is no gross malalignment of the s pine. CT would be needed for finer detail. POS: HOME
[2019-04-04] MEDS: diphenhydrAMINE 25 MG CAP PO PRN (23:51)
[2019-04-05] MEDS: Ondansetron ODT 4 MG TAB PO PRN (01:07)
[2019-04-05 05:37] LABS: ALT (SGPT) 8 U/L (8-55); AST (SGOT) 14 U/L (5-34); Albumin 2.6 g/dL (3.4-4.8); Alkaline Phosphatase 67 U/L (40-150); Anion Gap 12 mmol/L (10-20); BUN (Urea Nitrogen) 19 mg/dL (8.4-25.7); Bilirubin, Total 0.3 mg/dL (0.2-1.2); Calc. Creatinine Clearance 23 mL/min (70-130); Calcium 8.3 mg/dL (7.8-10.44); Carbon Dioxide 28 mmol/L (23-31); Chloride 102 mmol/L (98-107); Estimated GFR-MDRD 28; Globulin 2.6 g/dL (2.4-3.5); Glucose 85 mg/dL (83-110); Potassium 4.1 mmol/L (3.5-5.1); Protein, Total 5.2 g/dL (5.8-8.1); Sodium 138 mmol/L (136-145)
[2019-04-05 05:45] LABS: #Basophils 0.1 thou/uL (0.0-0.2); #Eosinphils 0.4 thou/uL (0.0-0.7); #Lymphocytes 1.2 thou/uL (1.20-3.40); #Monocytes 0.6 thou/uL (0.11-0.59); #Neutrophils 2.2 thou/uL (1.40-6.50); %Basophils 1.5 % (0.0-1.0); %Eosinophils 9.9 % (0.0-10.0); %Lymphocytes 26.2 % (21.0-51.0); %Monocytes 13.9 % (0.0-10.0); %Neutrophils 48.6 % (42.0-75.0); Hemoglobin 8.4 g/dL (14.0-18.0); Mean Corpuscular HGB CONC 32.2 g/dL (32.0-36.0); Mean Corpuscular Hemoglobin 29.4 pg (27.0-31.0); Mean Corpuscular Volume 91.5 fL (78.0-98.0); Mean Platelet Volume 6.3 fL (7.4-10.4); Platelet Count 86 thou/uL (130-400); RBC Distribution Width 13.5 % (11.5-14.5); Red Blood Cell (RBC) Count 2.85 mill/uL (4.70-6.10); White Blood Cell (WBC) Count 4.4 thou/uL (4.8-10.8)
[2019-04-05 06:32] LABS: MDiff Complete? YES; Manual Diff?? NO
[2019-04-05] MEDS: Saccharomyces boulardii 250 MG CAP PO SCH (09:40)
[2019-04-05] MEDS: Aspirin 81 mg Enteric Coated Tablet PO SCH (09:40)
[2019-04-05] MEDS: Losartan Potassium 50 MG TAB PO SCH (09:41)
[2019-04-05] MEDS: Rifampin 150 MG CAP PO SCH ×2 (09:41→21:24)
[2019-04-05] MEDS: Amlodipine 10 MG TAB PO SCH (09:41)
[2019-04-05] MEDS: Finasteride 5 MG TAB PO SCH (09:41)
[2019-04-05] MEDS: Gabapentin 300 MG CAP PO SCH ×3 (09:41→20:23)
[2019-04-05] MEDS: Famotidine 20 MG TAB PO SCH ×2 (09:42→20:24)
[2019-04-05] MEDS: DAPTOmycin 500 MG in Sodium Chloride 0.9% 100 ML IVPB SCH (19:40)
[2019-04-05] MEDS: Terazosin HCl 5 MG CAP PO SCH (20:24)
[2019-04-05] MEDS: Donepezil HCl 10 MG TAB PO SCH (20:24)
[2019-04-05] MEDS: diphenhydrAMINE 25 MG CAP PO PRN (21:24)
[2019-04-06] MEDS: Finasteride 5 MG TAB PO SCH (08:56)
[2019-04-06] MEDS: Aspirin 81 mg Enteric Coated Tablet PO SCH (08:56)
[2019-04-06] MEDS: Losartan Potassium 50 MG TAB PO SCH (08:56)
[2019-04-06] MEDS: Famotidine 20 MG TAB PO SCH ×2 (08:56→21:28)
[2019-04-06] MEDS: Amlodipine 10 MG TAB PO SCH (08:56)
[2019-04-06] MEDS: Rifampin 150 MG CAP PO SCH ×2 (08:56→21:28)
[2019-04-06] MEDS: Saccharomyces boulardii 250 MG CAP PO SCH (08:56)
[2019-04-06] MEDS: Gabapentin 300 MG CAP PO SCH ×3 (08:56→21:28)
[2019-04-06] MEDS: Terazosin HCl 5 MG CAP PO SCH (21:27)
[2019-04-06] MEDS: HYDROcodone/Acetaminophen 5/325 mg Tablet PO PRN (21:28)
[2019-04-06] MEDS: diphenhydrAMINE 25 MG CAP PO PRN (21:28)
[2019-04-06] MEDS: Donepezil HCl 10 MG TAB PO SCH (21:28)
[2019-04-07] MEDS: Rifampin 150 MG CAP PO SCH ×2 (08:58→20:50)
[2019-04-07] MEDS: Amlodipine 10 MG TAB PO SCH (08:58)
[2019-04-07] MEDS: Losartan Potassium 50 MG TAB PO SCH (08:59)
[2019-04-07] MEDS: Famotidine 20 MG TAB PO SCH ×2 (08:59→20:49)
[2019-04-07] MEDS: Saccharomyces boulardii 250 MG CAP PO SCH (08:59)
[2019-04-07] MEDS: Finasteride 5 MG TAB PO SCH (08:59)
[2019-04-07] MEDS: Gabapentin 300 MG CAP PO SCH ×3 (08:59→20:49)
[2019-04-07] MEDS: Aspirin 81 mg Enteric Coated Tablet PO SCH (08:59)
[2019-04-07] MEDS: DAPTOmycin 500 MG in Sodium Chloride 0.9% 100 ML IVPB SCH (20:43)
[2019-04-07] MEDS: Donepezil HCl 10 MG TAB PO SCH (20:49)
[2019-04-07] MEDS: Terazosin HCl 5 MG CAP PO SCH (20:49)
[2019-04-07] MEDS: HYDROcodone/Acetaminophen 5/325 mg Tablet PO PRN (20:50)
[2019-04-07] MEDS: diphenhydrAMINE 25 MG CAP PO PRN (20:50)
[2019-04-08] MEDS: Rifampin 150 MG CAP PO SCH ×2 (09:03→20:46)
[2019-04-08] MEDS: Finasteride 5 MG TAB PO SCH (09:03)
[2019-04-08] MEDS: Losartan Potassium 50 MG TAB PO SCH (09:03)
[2019-04-08] MEDS: Gabapentin 300 MG CAP PO SCH ×3 (09:04→20:44)
[2019-04-08] MEDS: Saccharomyces boulardii 250 MG CAP PO SCH (09:04)
[2019-04-08] MEDS: Aspirin 81 mg Enteric Coated Tablet PO SCH (09:04)
[2019-04-08] MEDS: Amlodipine 10 MG TAB PO SCH (09:04)
[2019-04-08] MEDS: Famotidine 20 MG TAB PO SCH ×2 (09:04→20:44)
[2019-04-08] MEDS: HYDROcodone/Acetaminophen 5/325 mg Tablet PO PRN (20:45)
[2019-04-08] MEDS: diphenhydrAMINE 25 MG CAP PO PRN (20:45)
[2019-04-08] MEDS: Terazosin HCl 5 MG CAP PO SCH (20:45)
[2019-04-08] MEDS: Donepezil HCl 10 MG TAB PO SCH (20:45)
[2019-04-09] MEDS: Gabapentin 300 MG CAP PO SCH ×3 (09:17→20:38)
[2019-04-09] MEDS: Amlodipine 10 MG TAB PO SCH (09:17)
[2019-04-09] MEDS: Aspirin 81 mg Enteric Coated Tablet PO SCH (09:17)
[2019-04-09] MEDS: Finasteride 5 MG TAB PO SCH (09:17)
[2019-04-09] MEDS: Losartan Potassium 50 MG TAB PO SCH (09:17)
[2019-04-09] MEDS: Rifampin 150 MG CAP PO SCH ×2 (09:17→20:38)
[2019-04-09] MEDS: Saccharomyces boulardii 250 MG CAP PO SCH (09:18)
[2019-04-09] MEDS: Famotidine 20 MG TAB PO SCH ×2 (09:18→20:38)
[2019-04-09] MEDS: Donepezil HCl 10 MG TAB PO SCH (20:36)
[2019-04-09] MEDS: DAPTOmycin 500 MG in Sodium Chloride 0.9% 100 ML IVPB SCH (20:36)
[2019-04-09] MEDS: Terazosin HCl 5 MG CAP PO SCH (20:37)
[2019-04-10 05:42] LABS: Anion Gap 15 mmol/L (10-20); BUN (Urea Nitrogen) 32 mg/dL (8.4-25.7); Calc. Creatinine Clearance 20 mL/min (70-130); Calcium 8.6 mg/dL (7.8-10.44); Carbon Dioxide 27 mmol/L (23-31); Chloride 103 mmol/L (98-107); Estimated GFR-MDRD 26; Glucose 80 mg/dL (83-110); Potassium 4.5 mmol/L (3.5-5.1); Sodium 140 mmol/L (136-145)
[2019-04-10] MEDS: Rifampin 150 MG CAP PO SCH ×2 (09:35→20:49)
[2019-04-10] MEDS: Saccharomyces boulardii 250 MG CAP PO SCH (09:35)
[2019-04-10] MEDS: Losartan Potassium 50 MG TAB PO SCH (09:35)
[2019-04-10] MEDS: Famotidine 20 MG TAB PO SCH ×2 (09:35→20:50)
[2019-04-10] MEDS: Aspirin 81 mg Enteric Coated Tablet PO SCH (09:35)
[2019-04-10] MEDS: Finasteride 5 MG TAB PO SCH (09:35)
[2019-04-10] MEDS: Amlodipine 10 MG TAB PO SCH (09:36)
[2019-04-10] MEDS: Gabapentin 300 MG CAP PO SCH ×3 (09:36→20:48)
[2019-04-10] MEDS: Terazosin HCl 5 MG CAP PO SCH (20:48)
[2019-04-10] MEDS: diphenhydrAMINE 25 MG CAP PO PRN (20:49)
[2019-04-10] MEDS: Donepezil HCl 10 MG TAB PO SCH (20:49)
[2019-04-10] MEDS: HYDROcodone/Acetaminophen 5/325 mg Tablet PO PRN (20:49)
[2019-04-11] MEDS: Amlodipine 10 MG TAB PO SCH (09:51)
[2019-04-11] MEDS: Aspirin 81 mg Enteric Coated Tablet PO SCH (09:51)
[2019-04-11] MEDS: Saccharomyces boulardii 250 MG CAP PO SCH (09:51)
[2019-04-11] MEDS: Gabapentin 300 MG CAP PO SCH ×3 (09:51→20:05)
[2019-04-11] MEDS: Finasteride 5 MG TAB PO SCH (09:51)
[2019-04-11] MEDS: Famotidine 20 MG TAB PO SCH ×2 (09:51→20:06)
[2019-04-11] MEDS: Rifampin 150 MG CAP PO SCH ×2 (09:51→20:49)
[2019-04-11] MEDS: Losartan Potassium 50 MG TAB PO SCH (09:55)
[2019-04-11] MEDS: DAPTOmycin 500 MG in Sodium Chloride 0.9% 100 ML IVPB SCH (20:05)
[2019-04-11] MEDS: Terazosin HCl 5 MG CAP PO SCH (20:05)
[2019-04-11] MEDS: Donepezil HCl 10 MG TAB PO SCH (20:06)
[2019-04-11] MEDS: diphenhydrAMINE 25 MG CAP PO PRN (20:06)
[2019-04-11] MEDS: HYDROcodone/Acetaminophen 5/325 mg Tablet PO PRN (20:49)
[2019-04-12 05:22] LABS: #Eosinphils 0.4 thou/uL (0.0-0.7); #Lymphocytes 1.4 thou/uL (1.20-3.40); #Monocytes 0.6 thou/uL (0.11-0.59); #Neutrophils 2.8 thou/uL (1.40-6.50); %Basophils 0.7 % (0.0-1.0); %Eosinophils 8.1 % (0.0-10.0); %Lymphocytes 26.6 % (21.0-51.0); %Monocytes 11.5 % (0.0-10.0); %Neutrophils 53.2 % (42.0-75.0); Hemoglobin 9.1 g/dL (14.0-18.0); Mean Corpuscular HGB CONC 31.3 g/dL (32.0-36.0); Mean Corpuscular Hemoglobin 28.7 pg (27.0-31.0); Mean Corpuscular Volume 91.5 fL (78.0-98.0); Mean Platelet Volume 5.4 fL (7.4-10.4); Platelet Count 140 thou/uL (130-400); Red Blood Cell (RBC) Count 3.18 mill/uL (4.70-6.10); White Blood Cell (WBC) Count 5.2 thou/uL (4.8-10.8)
[2019-04-12 05:35] LABS: ALT (SGPT) 33 U/L (8-55); AST (SGOT) 26 U/L (5-34); Alkaline Phosphatase 67 U/L (40-150); Anion Gap 14 mmol/L (10-20); BUN (Urea Nitrogen) 34 mg/dL (8.4-25.7); Bilirubin, Total 0.4 mg/dL (0.2-1.2); Calc. Creatinine Clearance 20 mL/min (70-130); Calcium 8.8 mg/dL (7.8-10.44); Carbon Dioxide 28 mmol/L (23-31); Chloride 103 mmol/L (98-107); Estimated GFR-MDRD 24; Globulin 3.1 g/dL (2.4-3.5); Glucose 75 mg/dL (83-110); Potassium 4.7 mmol/L (3.5-5.1); Protein, Total 6.1 g/dL (5.8-8.1); Sodium 140 mmol/L (136-145)
[2019-04-12 07:36] LABS: Clarity Clear (Clear); Glucose, Urine (Dipstick) Negative (Negative); Leukocyte Small (Negative); Nitrite Negative (Negative); Urobilinogen 0.2 mg/dL (Less than 2)
[2019-04-12 07:37] LABS: Bacteria/HPF None Seen HPF (None Seen); Bilirubin Negative (Negative); Blood, Urine Trace (Negative); Protein, Urine (Dipstick) Trace mg/dL (Neg-Trace); RBC/HPF 0-3 HPF (0-3); Squamous Epithelial 0-3 HPF (0-3); WBC/HPF 0-3 HPF (0-3); Yeast-Budding Rare HPF (None Seen)
[2019-04-12] MEDS: Amlodipine 10 MG TAB PO SCH (08:17)
[2019-04-12] MEDS: Finasteride 5 MG TAB PO SCH (08:17)
[2019-04-12] MEDS: Saccharomyces boulardii 250 MG CAP PO SCH (08:17)
[2019-04-12] MEDS: Aspirin 81 mg Enteric Coated Tablet PO SCH (08:17)
[2019-04-12] MEDS: Gabapentin 300 MG CAP PO SCH ×3 (08:17→20:09)
[2019-04-12] MEDS: Losartan Potassium 50 MG TAB PO SCH (08:17)
[2019-04-12] MEDS: Famotidine 20 MG TAB PO SCH ×2 (08:19→20:08)
[2019-04-12] MEDS: Rifampin 150 MG CAP PO SCH ×2 (11:38→20:24)
[2019-04-12] MEDS: Ondansetron ODT 4 MG TAB PO PRN (20:07)
[2019-04-12] MEDS: Donepezil HCl 10 MG TAB PO SCH (20:08)
[2019-04-12] MEDS: Terazosin HCl 5 MG CAP PO SCH (20:08)
[2019-04-12] MEDS: HYDROcodone/Acetaminophen 5/325 mg Tablet PO PRN (20:09)
[2019-04-12] MEDS: diphenhydrAMINE 25 MG CAP PO PRN (21:29)
[2019-04-13] MEDS: Aspirin 81 mg Enteric Coated Tablet PO SCH (10:56)
[2019-04-13] MEDS: Saccharomyces boulardii 250 MG CAP PO SCH (10:56)
[2019-04-13] MEDS: Famotidine 20 MG TAB PO SCH ×2 (10:56→21:17)
[2019-04-13] MEDS: Amlodipine 10 MG TAB PO SCH (10:57)
[2019-04-13] MEDS: Finasteride 5 MG TAB PO SCH (10:57)
[2019-04-13] MEDS: Gabapentin 300 MG CAP PO SCH ×3 (10:57→21:17)
[2019-04-13] MEDS: Losartan Potassium 50 MG TAB PO SCH (10:57)
[2019-04-13] MEDS: Rifampin 150 MG CAP PO SCH ×2 (11:00→21:17)
[2019-04-13] MEDS: DAPTOmycin 500 MG in Sodium Chloride 0.9% 100 ML IVPB SCH (21:16)
[2019-04-13] MEDS: Donepezil HCl 10 MG TAB PO SCH (21:17)
[2019-04-13] MEDS: diphenhydrAMINE 25 MG CAP PO PRN (21:17)
[2019-04-13] MEDS: Terazosin HCl 5 MG CAP PO SCH (21:17)
[2019-04-14] MEDS: Saccharomyces boulardii 250 MG CAP PO SCH (09:16)
[2019-04-14] MEDS: Aspirin 81 mg Enteric Coated Tablet PO SCH (09:16)
[2019-04-14] MEDS: Gabapentin 300 MG CAP PO SCH ×3 (09:16→20:51)
[2019-04-14] MEDS: Amlodipine 10 MG TAB PO SCH (09:16)
[2019-04-14] MEDS: Losartan Potassium 50 MG TAB PO SCH (09:16)
[2019-04-14] MEDS: Famotidine 20 MG TAB PO SCH ×2 (09:16→20:51)
[2019-04-14] MEDS: Finasteride 5 MG TAB PO SCH (09:17)
[2019-04-14] MEDS: Rifampin 150 MG CAP PO SCH ×2 (09:52→20:55)
[2019-04-14 10:12] LABS: Anion Gap 14 mmol/L (10-20); BUN (Urea Nitrogen) 34 mg/dL (8.4-25.7); Calc. Creatinine Clearance 21 mL/min (70-130); Calcium 9.1 mg/dL (7.8-10.44); Carbon Dioxide 28 mmol/L (23-31); Chloride 103 mmol/L (98-107); Estimated GFR-MDRD 27; Glucose 87 mg/dL (83-110); Potassium 4.8 mmol/L (3.5-5.1); Sodium 140 mmol/L (136-145)
[2019-04-14] MEDS: Terazosin HCl 5 MG CAP PO SCH (20:51)
[2019-04-14] MEDS: Donepezil HCl 10 MG TAB PO SCH (20:52)
[2019-04-14] MEDS: diphenhydrAMINE 25 MG CAP PO PRN (20:52)
[2019-04-14] MEDS: HYDROcodone/Acetaminophen 5/325 mg Tablet PO PRN (20:52)
[2019-04-14] MEDS ORDERED: Haloperidol Lactate 5 MG/ML VIAL ONE (21:17)
[2019-04-14] MEDS: Haloperidol Lactate 5 MG/ML VIAL IM PRN (21:31)
[2019-04-15] MEDS: Finasteride 5 MG TAB PO SCH (09:45)
[2019-04-15] MEDS: Rifampin 150 MG CAP PO SCH ×2 (09:45→23:44)
[2019-04-15] MEDS: Losartan Potassium 50 MG TAB PO SCH (09:45)
[2019-04-15] MEDS: Famotidine 20 MG TAB PO SCH ×2 (09:45→23:43)
[2019-04-15] MEDS: Gabapentin 300 MG CAP PO SCH ×3 (09:45→23:43)
[2019-04-15] MEDS: Aspirin 81 mg Enteric Coated Tablet PO SCH (09:45)
[2019-04-15] MEDS: Amlodipine 10 MG TAB PO SCH (09:45)
[2019-04-15] MEDS: Saccharomyces boulardii 250 MG CAP PO SCH (09:45)
[2019-04-15] MEDS: DAPTOmycin 500 MG in Sodium Chloride 0.9% 100 ML IVPB SCH (23:42)
[2019-04-15] MEDS: Donepezil HCl 10 MG TAB PO SCH (23:43)
[2019-04-15] MEDS: Terazosin HCl 5 MG CAP PO SCH (23:44)
[2019-04-16] MEDS: Losartan Potassium 50 MG TAB PO SCH (09:09)
[2019-04-16] MEDS: Gabapentin 300 MG CAP PO SCH ×3 (09:09→21:42)
[2019-04-16] MEDS: Aspirin 81 mg Enteric Coated Tablet PO SCH (09:09)
[2019-04-16] MEDS: Finasteride 5 MG TAB PO SCH (09:10)
[2019-04-16] MEDS: Saccharomyces boulardii 250 MG CAP PO SCH (09:10)
[2019-04-16] MEDS: Famotidine 20 MG TAB PO SCH ×2 (09:10→21:43)
[2019-04-16] MEDS: Amlodipine 10 MG TAB PO SCH (09:10)
[2019-04-16] MEDS: Rifampin 150 MG CAP PO SCH ×2 (10:46→21:42)
[2019-04-16] MEDS: Donepezil HCl 10 MG TAB PO SCH (21:43)
[2019-04-16] MEDS: Terazosin HCl 5 MG CAP PO SCH (21:43)
[2019-04-17] MEDS: Gabapentin 300 MG CAP PO SCH ×3 (09:17→20:39)
[2019-04-17] MEDS: Rifampin 150 MG CAP PO SCH ×2 (09:17→20:39)
[2019-04-17] MEDS: Amlodipine 10 MG TAB PO SCH (09:17)
[2019-04-17] MEDS: Famotidine 20 MG TAB PO SCH ×2 (09:17→20:39)
[2019-04-17] MEDS: Saccharomyces boulardii 250 MG CAP PO SCH (09:17)
[2019-04-17] MEDS: Losartan Potassium 50 MG TAB PO SCH (09:17)
[2019-04-17] MEDS: Aspirin 81 mg Enteric Coated Tablet PO SCH (09:18)
[2019-04-17] MEDS: Finasteride 5 MG TAB PO SCH (09:18)
[2019-04-17] MEDS: DAPTOmycin 500 MG in Sodium Chloride 0.9% 100 ML IVPB SCH (20:37)
[2019-04-17] MEDS: Terazosin HCl 5 MG CAP PO SCH (20:38)
[2019-04-17] MEDS: Donepezil HCl 10 MG TAB PO SCH (20:39)
[2019-04-17] MEDS: HYDROcodone/Acetaminophen 5/325 mg Tablet PO PRN (21:11)
[2019-04-17] MEDS: diphenhydrAMINE 25 MG CAP PO PRN (21:11)
[2019-04-18] MEDS: Aspirin 81 mg Enteric Coated Tablet PO SCH (11:33)
[2019-04-18] MEDS: Saccharomyces boulardii 250 MG CAP PO SCH (11:33)
[2019-04-18] MEDS: Gabapentin 300 MG CAP PO SCH (11:33)
[2019-04-18] MEDS: Finasteride 5 MG TAB PO SCH (11:33)
[2019-04-18] MEDS: Amlodipine 10 MG TAB PO SCH (11:34)
[2019-04-18] MEDS: Rifampin 150 MG CAP PO SCH ×2 (11:35→20:25)
[2019-04-18] MEDS: Losartan Potassium 50 MG TAB PO SCH (11:35)
[2019-04-18] MEDS: Famotidine 20 MG TAB PO SCH ×2 (11:50→20:01)
[2019-04-18 13:02] LABS: Anion Gap 13 mmol/L (10-20); BUN (Urea Nitrogen) 32 mg/dL (8.4-25.7); Calc. Creatinine Clearance 24 mL/min (70-130); Calcium 9.2 mg/dL (7.8-10.44); Carbon Dioxide 27 mmol/L (23-31); Chloride 105 mmol/L (98-107); Estimated GFR-MDRD 31; Glucose 106 mg/dL (83-110); Potassium 4.8 mmol/L (3.5-5.1); Sodium 140 mmol/L (136-145)
[2019-04-18] MEDS: Nystatin Cream 15 GM TUBE TOP SCH (20:00)
[2019-04-18] MEDS: Donepezil HCl 10 MG TAB PO SCH (20:01)
[2019-04-18] MEDS: Terazosin HCl 5 MG CAP PO SCH (20:01)
[2019-04-19 05:22] LABS: ALT (SGPT) 22 U/L (8-55); AST (SGOT) 19 U/L (5-34); Alkaline Phosphatase 62 U/L (40-110); Anion Gap 13 mmol/L (10-20); BUN (Urea Nitrogen) 31 mg/dL (8.4-25.7); Bilirubin, Total 0.3 mg/dL (0.2-1.2); Calc. Creatinine Clearance 26 mL/min (70-130); Calcium 8.8 mg/dL (7.8-10.44); Carbon Dioxide 26 mmol/L (23-31); Chloride 105 mmol/L (98-107); Estimated GFR-MDRD 35; Globulin 3.1 g/dL (2.4-3.5); Glucose 83 mg/dL (83-110); Potassium 4.5 mmol/L (3.5-5.1); Protein, Total 6.1 g/dL (5.8-8.1); Sodium 139 mmol/L (136-145)
[2019-04-19 06:48] LABS: %Eosinophils 8.6 % (0.0-10.0); %Lymphocytes 23.4 % (21.0-51.0); %Monocytes 13.6 % (0.0-10.0); %Neutrophils 53.4 % (42.0-75.0); Hemoglobin 8.1 g/dL (14.0-18.0); Manual Diff?? NO; Mean Corpuscular HGB CONC 32.6 g/dL (32.0-36.0); Mean Corpuscular Hemoglobin 29.7 pg (27.0-31.0); Mean Corpuscular Volume 90.9 fL (78.0-98.0); Mean Platelet Volume 5.6 fL (7.4-10.4); Platelet Count 116 thou/uL (130-400); RBC Distribution Width 13.3 % (11.5-14.5); Red Blood Cell (RBC) Count 2.74 mill/uL (4.70-6.10); White Blood Cell (WBC) Count 4.3 thou/uL (4.8-10.8)
[2019-04-19 06:49] LABS: #Eosinphils 0.4 thou/uL (0.0-0.7); #Monocytes 0.6 thou/uL (0.11-0.59); #Neutrophils 2.3 thou/uL (1.40-6.50); MDiff Complete? YES
[2019-04-19] MEDS: Saccharomyces boulardii 250 MG CAP PO SCH (08:43)
[2019-04-19] MEDS: Acetaminophen 500 MG TAB PO PRN ×2 (08:43→19:51)
[2019-04-19] MEDS: Gabapentin 100 MG CAP PO SCH (08:43)
[2019-04-19] MEDS: Famotidine 20 MG TAB PO SCH ×2 (08:44→19:50)
[2019-04-19] MEDS: Aspirin 81 mg Enteric Coated Tablet PO SCH (08:44)
[2019-04-19] MEDS: Amlodipine 10 MG TAB PO SCH (08:44)
[2019-04-19] MEDS: Finasteride 5 MG TAB PO SCH (08:45)
[2019-04-19] MEDS: Losartan Potassium 50 MG TAB PO SCH (08:45)
[2019-04-19] MEDS: Nystatin Cream 15 GM TUBE TOP SCH ×2 (08:53→20:26)
[2019-04-19] MEDS: Rifampin 150 MG CAP PO SCH ×2 (10:38→20:27)
[2019-04-19] MEDS: Ondansetron ODT 4 MG TAB PO PRN (18:04)
[2019-04-19] MEDS: DAPTOmycin 500 MG in Sodium Chloride 0.9% 100 ML IVPB SCH (19:49)
[2019-04-19] MEDS: Terazosin HCl 5 MG CAP PO SCH (19:51)
[2019-04-19] MEDS: Donepezil HCl 10 MG TAB PO SCH (19:51)
[2019-04-20] MEDS: Aspirin 81 mg Enteric Coated Tablet PO SCH (08:22)
[2019-04-20] MEDS: Finasteride 5 MG TAB PO SCH (08:22)
[2019-04-20] MEDS: Amlodipine 10 MG TAB PO SCH (08:23)
[2019-04-20] MEDS: Saccharomyces boulardii 250 MG CAP PO SCH (08:23)
[2019-04-20] MEDS: Famotidine 20 MG TAB PO SCH ×2 (08:24→20:08)
[2019-04-20] MEDS: Nystatin Cream 15 GM TUBE TOP SCH ×2 (08:24→21:41)
[2019-04-20] MEDS: Losartan Potassium 50 MG TAB PO SCH (08:24)
[2019-04-20] MEDS: Gabapentin 100 MG CAP PO SCH (08:24)
[2019-04-20] MEDS: Acetaminophen 500 MG TAB PO PRN ×2 (08:26→18:26)
[2019-04-20] MEDS: Rifampin 150 MG CAP PO SCH ×2 (13:18→21:38)
[2019-04-20] MEDS ORDERED: Haloperidol Lactate 5 MG/ML VIAL ONE (20:02)
[2019-04-20] MEDS: diphenhydrAMINE 25 MG CAP PO PRN (20:08)
[2019-04-20] MEDS: Terazosin HCl 5 MG CAP PO SCH (20:08)
[2019-04-20] MEDS: Donepezil HCl 10 MG TAB PO SCH (20:08)
[2019-04-20] MEDS: Haloperidol Lactate 5 MG/ML VIAL IM PRN (20:10)
[2019-04-20] MEDS ORDERED: Zolpidem Tartrate 5 MG TAB PO SCH (23:00)
[2019-04-21] MEDS: Acetaminophen 500 MG TAB PO PRN ×2 (03:45→15:45)
[2019-04-21] MEDS: Saccharomyces boulardii 250 MG CAP PO SCH (08:35)
[2019-04-21] MEDS: Famotidine 20 MG TAB PO SCH ×2 (08:35→21:03)
[2019-04-21] MEDS: Aspirin 81 mg Enteric Coated Tablet PO SCH (08:35)
[2019-04-21] MEDS: Finasteride 5 MG TAB PO SCH (08:35)
[2019-04-21] MEDS: Amlodipine 10 MG TAB PO SCH (08:35)
[2019-04-21] MEDS: Losartan Potassium 50 MG TAB PO SCH (08:35)
[2019-04-21] MEDS: Gabapentin 100 MG CAP PO SCH (08:35)
[2019-04-21] MEDS: Nystatin Cream 15 GM TUBE TOP SCH ×2 (08:37→21:15)
[2019-04-21 08:43] LABS: #Eosinphils 0.3 thou/uL (0.0-0.7); #Lymphocytes 0.7 thou/uL (1.20-3.40); #Monocytes 0.4 thou/uL (0.11-0.59); #Neutrophils 2.4 thou/uL (1.40-6.50); %Basophils 0.6 % (0.0-1.0); %Eosinophils 7.9 % (0.0-10.0); %Lymphocytes 19.1 % (21.0-51.0); %Monocytes 9.6 % (0.0-10.0); %Neutrophils 62.8 % (42.0-75.0); Hemoglobin 8.7 g/dL (14.0-18.0); Mean Corpuscular HGB CONC 32.7 g/dL (32.0-36.0); Mean Corpuscular Hemoglobin 29.4 pg (27.0-31.0); Mean Corpuscular Volume 89.9 fL (78.0-98.0); Mean Platelet Volume 5.4 fL (7.4-10.4); Platelet Count 117 thou/uL (130-400); Platelet Morphology Comment PT HAS HX OF LOW DECREASED PLATELET COUNT; RBC Distribution Width 13.5 % (11.5-14.5); Red Blood Cell (RBC) Count 2.97 mill/uL (4.70-6.10); White Blood Cell (WBC) Count 3.8 thou/uL (4.8-10.8)
[2019-04-21 08:44] LABS: MDiff Complete? YES; Manual Diff?? NO
[2019-04-21 09:13] LABS: Anion Gap 15 mmol/L (10-20); BUN (Urea Nitrogen) 30 mg/dL (8.4-25.7); Calc. Creatinine Clearance 26 mL/min (70-130); Calcium 9.2 mg/dL (7.8-10.44); Carbon Dioxide 25 mmol/L (23-31); Chloride 105 mmol/L (98-107); Estimated GFR-MDRD 35; Glucose 140 mg/dL (83-110); Potassium 4.3 mmol/L (3.5-5.1); Sodium 141 mmol/L (136-145)
[2019-04-21] MEDS: Rifampin 150 MG CAP PO SCH ×2 (09:50→21:03)
[2019-04-21] MEDS: diphenhydrAMINE 25 MG CAP PO PRN (15:45)
[2019-04-21] MEDS ORDERED: Zolpidem Tartrate 5 MG TAB PO SCH (21:00)
[2019-04-21] MEDS: Terazosin HCl 5 MG CAP PO SCH (21:03)
[2019-04-21] MEDS: DAPTOmycin 500 MG in Sodium Chloride 0.9% 100 ML IVPB SCH (21:04)
[2019-04-21] MEDS: Donepezil HCl 10 MG TAB PO SCH (21:04)
[2019-04-22] MEDS: Rifampin 150 MG CAP PO SCH ×2 (10:13→21:10)
[2019-04-22] MEDS: Saccharomyces boulardii 250 MG CAP PO SCH (10:13)
[2019-04-22] MEDS: Acetaminophen 500 MG TAB PO PRN (10:13)
[2019-04-22] MEDS: Amlodipine 10 MG TAB PO SCH (10:14)
[2019-04-22] MEDS: Gabapentin 100 MG CAP PO SCH (10:15)
[2019-04-22] MEDS: Finasteride 5 MG TAB PO SCH (10:15)
[2019-04-22] MEDS: Famotidine 20 MG TAB PO SCH ×2 (10:15→19:43)
[2019-04-22] MEDS: Losartan Potassium 50 MG TAB PO SCH (10:15)
[2019-04-22] MEDS: Aspirin 81 mg Enteric Coated Tablet PO SCH (10:15)
[2019-04-22] MEDS: Nystatin Cream 15 GM TUBE TOP SCH ×2 (10:24→19:49)
[2019-04-22] MEDS: Terazosin HCl 5 MG CAP PO SCH (19:42)
[2019-04-22] MEDS: Ziprasidone 20 MG CAP PO PRN (19:42)
[2019-04-22] MEDS: Donepezil HCl 10 MG TAB PO SCH (19:43)
[2019-04-22] MEDS: diphenhydrAMINE 25 MG CAP PO PRN (21:10)
[2019-04-23] MEDS: Saccharomyces boulardii 250 MG CAP PO SCH (09:00)
[2019-04-23] MEDS: Finasteride 5 MG TAB PO SCH (09:01)
[2019-04-23] MEDS: Aspirin 81 mg Enteric Coated Tablet PO SCH (09:01)
[2019-04-23] MEDS: Gabapentin 100 MG CAP PO SCH (09:01)
[2019-04-23] MEDS: Famotidine 20 MG TAB PO SCH ×2 (09:02→20:03)
[2019-04-23] MEDS: Losartan Potassium 50 MG TAB PO SCH (09:02)
[2019-04-23] MEDS: Amlodipine 10 MG TAB PO SCH (09:02)
[2019-04-23] MEDS: Nystatin Cream 15 GM TUBE TOP SCH ×2 (09:03→20:04)
[2019-04-23] MEDS: Rifampin 150 MG CAP PO SCH ×2 (11:05→20:54)
[2019-04-23] MEDS: DAPTOmycin 500 MG in Sodium Chloride 0.9% 100 ML IVPB SCH (19:58)
[2019-04-23] MEDS: Ziprasidone 20 MG CAP PO PRN (20:03)
[2019-04-23] MEDS: Terazosin HCl 5 MG CAP PO SCH (20:03)
[2019-04-23] MEDS: Donepezil HCl 10 MG TAB PO SCH (20:03)
[2019-04-24] MEDS: Saccharomyces boulardii 250 MG CAP PO SCH (09:43)
[2019-04-24] MEDS: Aspirin 81 mg Enteric Coated Tablet PO SCH (09:43)
[2019-04-24] MEDS: Famotidine 20 MG TAB PO SCH ×2 (09:43→20:38)
[2019-04-24] MEDS: Finasteride 5 MG TAB PO SCH (09:43)
[2019-04-24] MEDS: Amlodipine 10 MG TAB PO SCH (09:43)
[2019-04-24] MEDS: Gabapentin 100 MG CAP PO SCH (09:44)
[2019-04-24] MEDS: Losartan Potassium 50 MG TAB PO SCH (09:44)
[2019-04-24] MEDS: Rifampin 150 MG CAP PO SCH ×2 (09:44→20:38)
[2019-04-24] MEDS: Nystatin Cream 15 GM TUBE TOP SCH ×2 (09:45→20:44)
[2019-04-24] MEDS: Donepezil HCl 10 MG TAB PO SCH (20:38)
[2019-04-24] MEDS: Terazosin HCl 5 MG CAP PO SCH (20:38)
[2019-04-24] MEDS: Acetaminophen 500 MG TAB PO PRN (21:08)
[2019-04-24] MEDS: Ondansetron ODT 4 MG TAB PO PRN (21:08)
[2019-04-24] MEDS: Ziprasidone 20 MG CAP PO PRN (21:08)
[2019-04-25] MEDS: Rifampin 150 MG CAP PO SCH ×2 (08:49→22:29)
[2019-04-25] MEDS: Losartan Potassium 50 MG TAB PO SCH (08:49)
[2019-04-25] MEDS: Saccharomyces boulardii 250 MG CAP PO SCH (08:49)
[2019-04-25] MEDS: Finasteride 5 MG TAB PO SCH (08:49)
[2019-04-25] MEDS: Amlodipine 10 MG TAB PO SCH (08:50)
[2019-04-25] MEDS: Aspirin 81 mg Enteric Coated Tablet PO SCH (08:50)
[2019-04-25] MEDS: Famotidine 20 MG TAB PO SCH ×2 (08:50→19:26)
[2019-04-25] MEDS: Gabapentin 100 MG CAP PO SCH (08:50)
[2019-04-25] MEDS: Nystatin Cream 15 GM TUBE TOP SCH ×2 (08:51→19:36)
[2019-04-25] MEDS: diphenhydrAMINE 25 MG CAP PO PRN (13:16)
[2019-04-25] MEDS: Acetaminophen 500 MG TAB PO PRN ×2 (13:17→19:25)
[2019-04-25] MEDS ORDERED: Haloperidol Lactate 5 MG/ML VIAL IM SCH (15:15)
[2019-04-25] MEDS ORDERED: Haloperidol Lactate 5 MG/ML VIAL ONE (15:15)
[2019-04-25] MEDS ORDERED: Haloperidol Lactate 5 MG/ML VIAL IM ONE (17:40)
[2019-04-25] MEDS: Donepezil HCl 10 MG TAB PO SCH (19:26)
[2019-04-25] MEDS: Terazosin HCl 5 MG CAP PO SCH (19:26)
[2019-04-25] MEDS: DAPTOmycin 500 MG in Sodium Chloride 0.9% 100 ML IVPB SCH (19:36)
[2019-04-26 05:30] LABS: ALT (SGPT) 21 U/L (8-55); AST (SGOT) 19 U/L (5-34); Albumin 3.1 g/dL (3.4-4.8); Alkaline Phosphatase 54 U/L (40-110); Anion Gap 12 mmol/L (10-20); BUN (Urea Nitrogen) 23 mg/dL (8.4-25.7); Bilirubin, Total 0.2 mg/dL (0.2-1.2); Calc. Creatinine Clearance 29 mL/min (70-130); Calcium 8.7 mg/dL (7.8-10.44); Carbon Dioxide 26 mmol/L (23-31); Chloride 106 mmol/L (98-107); Estimated GFR-MDRD 41; Globulin 3.1 g/dL (2.4-3.5); Glucose 76 mg/dL (83-110); Potassium 4.6 mmol/L (3.5-5.1); Protein, Total 6.2 g/dL (5.8-8.1); Sodium 139 mmol/L (136-145)
[2019-04-26 05:46] LABS: #Eosinphils 0.2 thou/uL (0.0-0.7); #Monocytes 0.6 thou/uL (0.11-0.59); #Neutrophils 2.6 thou/uL (1.40-6.50); %Basophils 0.3 % (0.0-1.0); %Eosinophils 5.3 % (0.0-10.0); %Lymphocytes 21.8 % (21.0-51.0); %Monocytes 13.7 % (0.0-10.0); %Neutrophils 58.9 % (42.0-75.0); Hemoglobin 8.2 g/dL (14.0-18.0); Mean Corpuscular HGB CONC 32.7 g/dL (32.0-36.0); Mean Corpuscular Hemoglobin 29.1 pg (27.0-31.0); Mean Corpuscular Volume 89.1 fL (78.0-98.0); Mean Platelet Volume 5.1 fL (7.4-10.4); Platelet Count 100 thou/uL (130-400); Platelet Morphology Comment Appears Decreased; RBC Distribution Width 13.5 % (11.5-14.5); RBC Morphology Normal; Red Blood Cell (RBC) Count 2.81 mill/uL (4.70-6.10); White Blood Cell (WBC) Count 4.5 thou/uL (4.8-10.8)
[2019-04-26 05:47] LABS: MDiff Complete? YES; Manual Diff?? NO
[2019-04-26] MEDS: Acetaminophen 500 MG TAB PO PRN ×2 (06:16→19:10)
[2019-04-26] MEDS: Aspirin 81 mg Enteric Coated Tablet PO SCH (08:37)
[2019-04-26] MEDS: Losartan Potassium 50 MG TAB PO SCH (08:37)
[2019-04-26] MEDS: Famotidine 20 MG TAB PO SCH ×2 (08:37→21:10)
[2019-04-26] MEDS: Gabapentin 300 MG CAP PO SCH ×3 (08:37→21:35)
[2019-04-26] MEDS: Finasteride 5 MG TAB PO SCH (08:37)
[2019-04-26] MEDS: Saccharomyces boulardii 250 MG CAP PO SCH (08:38)
[2019-04-26] MEDS: Amlodipine 10 MG TAB PO SCH (08:38)
[2019-04-26] MEDS: Nystatin Cream 15 GM TUBE TOP SCH ×2 (08:39→21:34)
[2019-04-26] MEDS: Rifampin 150 MG CAP PO SCH ×2 (13:17→21:09)
[2019-04-26] MEDS: Terazosin HCl 5 MG CAP PO SCH (21:35)
[2019-04-26] MEDS: Donepezil HCl 10 MG TAB PO SCH (21:35)
[2019-04-27] MEDS: Acetaminophen 500 MG TAB PO PRN (08:50)
[2019-04-27] MEDS: Famotidine 20 MG TAB PO SCH ×2 (09:24→19:58)
[2019-04-27] MEDS: Aspirin 81 mg Enteric Coated Tablet PO SCH (09:24)
[2019-04-27] MEDS: Saccharomyces boulardii 250 MG CAP PO SCH (09:25)
[2019-04-27] MEDS: Gabapentin 300 MG CAP PO SCH ×3 (09:25→19:57)
[2019-04-27] MEDS: Rifampin 150 MG CAP PO SCH ×2 (09:25→21:06)
[2019-04-27] MEDS: Losartan Potassium 50 MG TAB PO SCH (09:33)
[2019-04-27] MEDS: Finasteride 5 MG TAB PO SCH (09:34)
[2019-04-27] MEDS: Nystatin Cream 15 GM TUBE TOP SCH ×2 (09:43→21:07)
[2019-04-27] MEDS: Amlodipine 10 MG TAB PO SCH (09:51)
[2019-04-27] MEDS: DAPTOmycin 500 MG in Sodium Chloride 0.9% 100 ML IVPB SCH (19:53)
[2019-04-27] MEDS: Terazosin HCl 5 MG CAP PO SCH (19:57)
[2019-04-27] MEDS: Donepezil HCl 10 MG TAB PO SCH (19:58)
[2019-04-28] MEDS: Losartan Potassium 50 MG TAB PO SCH (09:56)
[2019-04-28] MEDS: Rifampin 150 MG CAP PO SCH ×2 (09:56→20:56)
[2019-04-28] MEDS: Amlodipine 10 MG TAB PO SCH (09:56)
[2019-04-28] MEDS: Aspirin 81 mg Enteric Coated Tablet PO SCH (09:56)
[2019-04-28] MEDS: Saccharomyces boulardii 250 MG CAP PO SCH (09:56)
[2019-04-28] MEDS: Acetaminophen 500 MG TAB PO PRN ×2 (09:57→18:45)
[2019-04-28] MEDS: Famotidine 20 MG TAB PO SCH ×2 (09:57→20:04)
[2019-04-28] MEDS: Finasteride 5 MG TAB PO SCH (09:57)
[2019-04-28] MEDS: Gabapentin 300 MG CAP PO SCH ×2 (09:57→15:09)
[2019-04-28] MEDS: Nystatin Cream 15 GM TUBE TOP SCH ×2 (09:58→20:05)
[2019-04-28] MEDS ORDERED: Haloperidol Lactate 5 MG/ML VIAL ONE (19:42)
[2019-04-28] MEDS: Gabapentin 100 MG CAP PO SCH (20:03)
[2019-04-28] MEDS: Terazosin HCl 5 MG CAP PO SCH (20:03)
[2019-04-28] MEDS: Haloperidol Lactate 5 MG/ML VIAL IM PRN (20:04)
[2019-04-28] MEDS: Donepezil HCl 10 MG TAB PO SCH (20:04)
[2019-04-29] MEDS: Gabapentin 100 MG CAP PO SCH ×2 (09:28→19:14)
[2019-04-29] MEDS: Amlodipine 5 MG TAB PO SCH (09:29)
[2019-04-29] MEDS: Rifampin 150 MG CAP PO SCH ×2 (09:31→21:23)
[2019-04-29] MEDS: Ferrous Sulfate 325 MG TAB PO SCH (09:31)
[2019-04-29] MEDS: Saccharomyces boulardii 250 MG CAP PO SCH (09:31)
[2019-04-29] MEDS: Aspirin 81 mg Enteric Coated Tablet PO SCH (09:31)
[2019-04-29] MEDS: Famotidine 20 MG TAB PO SCH ×2 (09:31→19:16)
[2019-04-29] MEDS: Finasteride 5 MG TAB PO SCH (09:31)
[2019-04-29] MEDS: Acetaminophen 500 MG TAB PO PRN ×2 (11:26→19:14)
--- NOTE | 2019-04-29 18:33 | PRG ---
DATE OF SERVICE: 04/01/2019 SUBJECTIVE: The patient is eating well, he is refusing supplements. The patient is mostly sitting on his chair. Reported some edema on legs. He is walking with physical therapy. His creatinine is increasing. He denies any symptoms. PHYSICAL EXAMINATION: VITAL SIGNS: Blood pressure of 144/73, pulse of 74, RR of 18, and temperature of 98.3. GENERAL: The patient is alert, oriented to himself, not in respiratory distress. HEENT: Normocephalic and atraumatic. Pupils equally reactive to light. NECK: Positive for decreased range of motion, on cervical collar. Negative for JVD. CHEST AND LUNGS: Symmetrical expansion. Clear to auscultation. HEART: Regular rate and rhythm. Negative for murmur. ABDOMEN: Flat, soft, and nontender. EXTREMITIES: Good peripheral pulses. No clubbing. No cyanosis. NEUROLOGIC: Affect depressed. No focal deficits. LABORATORY DATA: Hemoglobin of 9 and hematocrit of 27.7. Creatinine of 1.92 and GFR of 33. ASSESSMENT: 1. Sepsis/bacteremia with methicillin-resistant Staphylococcus aureus, on vancomycin, ceftaroline, and rifampin. 2. Endocarditis with prosthetic valve. 3. Encephalopathy, multifactorial. 4. Acute renal failure, continue to monitor. 5. Chronic anemia. 6. Deep venous thrombosis prophylaxis, discontinued. 7. Poor appetite. 8. Cervical fracture (C1), on cervical collar. 9. Hypertension, controlled. 10. Dementia, on Benadryl IM as needed. 11. Physical deconditioning. Continue physical and occupational therapy. Job ID: [id number]
--- NOTE | 2019-04-29 18:45 | PRG ---
DATE OF SERVICE: 04/18/2019 SUBJECTIVE: The patient is experiencing intermittent episodes of restlessness, wanting to go home, he is needing frequent orientation due to confusion. The patient is having weakness, unmotivated to participate with physical therapy. There was a concern regarding weakness and confusion due to high dose of Neurontin. Also reported beginning of stage II decubitus ulcer. OBJECTIVE: VITAL SIGNS: Blood pressure of 119/56, temperature of 98.2, pulse of 76, respirations of 18, O2 saturation 95% on room air. GENERAL: The patient is oriented to himself, not in respiratory distress. HEENT: Normocephalic and atraumatic. Moist mucous membrane. NECK: Has decreased range of motion, on cervical collar. CHEST AND LUNGS: Symmetrical expansion. Clear to auscultation. HEART: Regular rate and rhythm. ABDOMEN: Flat, soft, nontender. EXTREMITIES: Good peripheral pulses. Negative for Homans sign. NEUROLOGIC: Affect depressed. No focal deficits. LABORATORY DATA: Basic metabolics; sodium of 140, potassium of 4.8, BUN of 32, creatinine of 2.03, GFR of 31, creatine kinase of 54. ASSESSMENT: 1. Sepsis/bacteremia with methicillin-resistant Staphylococcus aureus, on daptomycin 500 mg IV q.48 hours and rifampin p.o., completion, May 10. Endocarditis with prosthetic valve. 2. Encephalopathy, multifactorial. 3. Acute renal insufficiency, continue to monitor. 4. Deep venous thrombosis prophylaxis. Lovenox discontinued. 5. Poor appetite. 6. Cervical fracture (C1), on cervical collar. 7. Stage I decubitus ulcer, continue to monitor. 8. Hypertension, stable. 9. Dementia, on Benadryl IM as needed. 10. Physical deconditioning. Continue physical and occupational therapy. Job ID: [id number]
[2019-04-29] MEDS ORDERED: Haloperidol Lactate 5 MG/ML VIAL ONE (19:01)
[2019-04-29] MEDS: DAPTOmycin 500 MG in Sodium Chloride 0.9% 100 ML IVPB SCH (19:13)
[2019-04-29] MEDS: Donepezil HCl 10 MG TAB PO SCH (19:15)
[2019-04-29] MEDS: Terazosin HCl 5 MG CAP PO SCH (19:15)
[2019-04-29] MEDS: Haloperidol Lactate 5 MG/ML VIAL IM PRN (19:16)
[2019-04-30 06:57] LABS: INR-International Normal Ratio 1.3; Prothrombin Time 15.8 SEC (12.0-14.7)
[2019-04-30] MEDS: Saccharomyces boulardii 250 MG CAP PO SCH (10:04)
[2019-04-30] MEDS: Gabapentin 100 MG CAP PO SCH ×2 (10:04→19:36)
[2019-04-30] MEDS: Amlodipine 5 MG TAB PO SCH (10:05)
[2019-04-30] MEDS: Aspirin 81 mg Enteric Coated Tablet PO SCH (10:05)
[2019-04-30] MEDS: Ferrous Sulfate 325 MG TAB PO SCH (10:05)
[2019-04-30] MEDS: Finasteride 5 MG TAB PO SCH (10:06)
[2019-04-30] MEDS: Famotidine 20 MG TAB PO SCH ×2 (10:06→19:37)
[2019-04-30] MEDS: Rifampin 150 MG CAP PO SCH ×2 (10:06→21:48)
[2019-04-30] MEDS: Acetaminophen 500 MG TAB PO PRN ×2 (12:04→21:48)
[2019-04-30] MEDS ORDERED: Haloperidol Lactate 5 MG/ML VIAL ONE (17:25)
[2019-04-30] MEDS: Haloperidol Lactate 5 MG/ML VIAL IM PRN (17:28)
[2019-04-30] MEDS ORDERED: Famotidine 20 MG TAB ONE (19:30)
[2019-04-30] MEDS: Terazosin HCl 5 MG CAP PO SCH (19:36)
[2019-04-30] MEDS: Donepezil HCl 10 MG TAB PO SCH (19:37)
[2019-05-01] MEDS ORDERED: Famotidine 20 MG TAB ONE (07:53)
[2019-05-01] MEDS: Ferrous Sulfate 325 MG TAB PO SCH (08:00)
[2019-05-01] MEDS: Amlodipine 5 MG TAB PO SCH (08:01)
[2019-05-01] MEDS: Saccharomyces boulardii 250 MG CAP PO SCH (08:01)
[2019-05-01] MEDS: Gabapentin 100 MG CAP PO SCH ×2 (08:01→19:58)
[2019-05-01] MEDS: Aspirin 81 mg Enteric Coated Tablet PO SCH (08:01)
[2019-05-01] MEDS: Acetaminophen 500 MG TAB PO PRN (08:01)
[2019-05-01] MEDS: Famotidine 20 MG TAB PO SCH ×2 (08:02→19:59)
[2019-05-01] MEDS: Finasteride 5 MG TAB PO SCH (08:02)
--- NOTE | 2019-05-01 09:13 | PRG ---
DATE OF SERVICE: 04/12/2019 SUBJECTIVE: The patient is requiring Benadryl IM for anxiety, he had loose bowel movements earlier this week. Cervical spine x-ray was ordered. The patient complained of abdominal pain with loose bowel movements. OBJECTIVE: VITAL SIGNS: Blood pressure 134/88, pulse of 84, RR of 20, O2 saturation 98%, and temperature of 98.5. GENERAL: The patient is alert, oriented to himself, not in respiratory distress. Afebrile. HEENT: Normocephalic and atraumatic. Pupils equally reactive to light. Moist mucous membrane. NECK: Positive for decreased range of motion on cervical collar. Negative for JVD. CHEST AND LUNGS: Symmetrical expansion. Clear to auscultation. HEART: Regular rate and rhythm. Negative for murmur. ABDOMEN: Flat, soft, nontender. Normoactive bowel sounds. EXTREMITIES: Good peripheral pulses. No clubbing. No cyanosis. Negative for Homans sign. NEUROLOGIC: Affect normal. No focal deficits. LABORATORY DATA: Comp met;sodium of 140, potassium of 4.7, BUN of 34, and creatinine of 2.5. GFR of 24. CBC; WBC of 5, hemoglobin of 9, hematocrit of 29, and platelet count of 140. CRP of 2.32. ASSESSMENT: 1. Sepsis/bacteremia with methicillin-resistant Staphylococcus aureus, vancomycin and ceftaroline were both discontinued. The patient started daptomycin along with rifampin. 2. Endocarditis with prosthetic valve. 3. Encephalopathy, multifactorial. 4. Acute renal failure. Continue to monitor. 5. Deep venous thrombosis prophylaxis, Lovenox discontinued due to low platelet count. 6. Poor appetite. 7. Cervical fracture (C1) on cervical collar. 8. Hypertension, stable. 9. Dementia, on Benadryl IM as needed. 10. Physical deconditioning. Continue physical and occupational therapy. 11. Discontinue IV antibiotics on May 10. Job ID: [id number]
[2019-05-01] MEDS: Rifampin 150 MG CAP PO SCH ×2 (09:44→21:35)
[2019-05-01] MEDS ORDERED: Haloperidol Lactate 5 MG/ML VIAL ONE (17:30)
[2019-05-01] MEDS: Haloperidol Lactate 5 MG/ML VIAL IM PRN (17:32)
[2019-05-01] MEDS: Terazosin HCl 5 MG CAP PO SCH (19:58)
[2019-05-01] MEDS: DAPTOmycin 500 MG in Sodium Chloride 0.9% 100 ML IVPB SCH (19:59)
[2019-05-01] MEDS: Donepezil HCl 10 MG TAB PO SCH (19:59)
[2019-05-02] MEDS: Acetaminophen 500 MG TAB PO PRN ×2 (08:40→22:23)
[2019-05-02] MEDS: Ferrous Sulfate 325 MG TAB PO SCH (08:40)
[2019-05-02] MEDS: Gabapentin 100 MG CAP PO SCH ×2 (08:41→20:13)
[2019-05-02] MEDS: Finasteride 5 MG TAB PO SCH (08:41)
[2019-05-02] MEDS: Aspirin 81 mg Enteric Coated Tablet PO SCH (08:41)
[2019-05-02] MEDS: Famotidine 20 MG TAB PO SCH ×2 (08:41→20:13)
[2019-05-02] MEDS: Saccharomyces boulardii 250 MG CAP PO SCH (08:41)
[2019-05-02] MEDS: Amlodipine 5 MG TAB PO SCH (08:41)
[2019-05-02] MEDS: Rifampin 150 MG CAP PO SCH ×2 (09:52→22:23)
[2019-05-02] MEDS ORDERED: Haloperidol Lactate 5 MG/ML VIAL ONE (17:01)
[2019-05-02] MEDS: Haloperidol Lactate 5 MG/ML VIAL IM PRN (17:04)
[2019-05-02] MEDS: Terazosin HCl 5 MG CAP PO SCH (20:13)
[2019-05-02] MEDS: Donepezil HCl 10 MG TAB PO SCH (20:13)
[2019-05-03 05:48] LABS: ALT (SGPT) 16 U/L (8-55); AST (SGOT) 20 U/L (5-34); Albumin 2.8 g/dL (3.4-4.8); Alkaline Phosphatase 56 U/L (40-110); Anion Gap 12 mmol/L (10-20); BUN (Urea Nitrogen) 35 mg/dL (8.4-25.7); Bilirubin, Total 0.3 mg/dL (0.2-1.2); Calc. Creatinine Clearance 33 mL/min (70-130); Calcium 8.6 mg/dL (7.8-10.44); Carbon Dioxide 25 mmol/L (23-31); Chloride 108 mmol/L (98-107); Estimated GFR-MDRD 47; Globulin 2.9 g/dL (2.4-3.5); Glucose 80 mg/dL (83-110); Potassium 4.8 mmol/L (3.5-5.1); Protein, Total 5.7 g/dL (5.8-8.1); Sodium 140 mmol/L (136-145)
[2019-05-03 06:06] LABS: #Eosinphils 0.2 thou/uL (0.0-0.7); #Lymphocytes 0.9 thou/uL (1.20-3.40); #Monocytes 0.5 thou/uL (0.11-0.59); #Neutrophils 2.2 thou/uL (1.40-6.50); %Basophils 0.7 % (0.0-1.0); %Eosinophils 4.5 % (0.0-10.0); %Lymphocytes 23.5 % (21.0-51.0); %Monocytes 13.1 % (0.0-10.0); %Neutrophils 58.1 % (42.0-75.0); Hemoglobin 5.9 g/dL (14.0-18.0); MDiff Complete? YES; Mean Corpuscular HGB CONC 32.8 g/dL (32.0-36.0); Mean Corpuscular Hemoglobin 29.8 pg (27.0-31.0); Mean Corpuscular Volume 90.7 fL (78.0-98.0); Mean Platelet Volume 5.1 fL (7.4-10.4); Platelet Count 111 thou/uL (130-400); Platelet Morphology Comment Appears Decreased; RBC Distribution Width 14.3 % (11.5-14.5); RBC Morphology Normal; Red Blood Cell (RBC) Count 1.97 mill/uL (4.70-6.10); Small Platelets SLIGHT; White Blood Cell (WBC) Count 3.8 thou/uL (4.8-10.8)
[2019-05-03] MEDS ORDERED: Furosemide 20 MG/2 ML VIAL SLOW IVP SCH (07:30)
[2019-05-03] MEDS: Saccharomyces boulardii 250 MG CAP PO SCH (09:39)
[2019-05-03] MEDS: Gabapentin 100 MG CAP PO SCH ×2 (09:39→21:00)
[2019-05-03] MEDS: Finasteride 5 MG TAB PO SCH (09:40)
[2019-05-03] MEDS: Rifampin 150 MG CAP PO SCH ×2 (09:40→20:59)
[2019-05-03] MEDS: Ferrous Sulfate 325 MG TAB PO SCH (09:40)
[2019-05-03] MEDS: Aspirin 81 mg Enteric Coated Tablet PO SCH (09:40)
[2019-05-03] MEDS: Amlodipine 5 MG TAB PO SCH (09:41)
[2019-05-03] MEDS: Famotidine 20 MG TAB PO SCH ×2 (09:41→20:59)
[2019-05-03 11:51] VITALS: BMI 20.7
[2019-05-03] MEDS: Acetaminophen 500 MG TAB PO PRN (16:17)
[2019-05-03] MEDS ORDERED: Haloperidol Lactate 5 MG/ML VIAL ONE (17:18)
[2019-05-03] MEDS: Haloperidol Lactate 5 MG/ML VIAL IM PRN (17:20)
[2019-05-03 19:25] LABS: Hemoglobin 9.1 g/dL (14.0-18.0)
[2019-05-03] MEDS: DAPTOmycin 500 MG in Sodium Chloride 0.9% 100 ML IVPB SCH (20:58)
[2019-05-03] MEDS: Terazosin HCl 5 MG CAP PO SCH (20:59)
[2019-05-03] MEDS: Donepezil HCl 10 MG TAB PO SCH (21:00)
[2019-05-04] MEDS: Gabapentin 100 MG CAP PO SCH ×2 (08:39→19:27)
[2019-05-04] MEDS: Aspirin 81 mg Enteric Coated Tablet PO SCH (08:39)
[2019-05-04] MEDS: Saccharomyces boulardii 250 MG CAP PO SCH (08:40)
[2019-05-04] MEDS: Finasteride 5 MG TAB PO SCH (08:40)
[2019-05-04] MEDS: Amlodipine 5 MG TAB PO SCH (08:40)
[2019-05-04] MEDS: Famotidine 20 MG TAB PO SCH ×2 (08:41→19:27)
[2019-05-04] MEDS: Ferrous Sulfate 325 MG TAB PO SCH (08:41)
[2019-05-04] MEDS: Rifampin 150 MG CAP PO SCH ×2 (09:12→21:43)
[2019-05-04] MEDS ORDERED: Haloperidol Lactate 5 MG/ML VIAL ONE (15:51)
[2019-05-04] MEDS: Haloperidol Lactate 5 MG/ML VIAL IM PRN ×2 (15:54→16:06)
[2019-05-04] MEDS: Acetaminophen 500 MG TAB PO PRN (19:27)
[2019-05-04] MEDS: Terazosin HCl 5 MG CAP PO SCH (19:27)
[2019-05-04] MEDS: Donepezil HCl 10 MG TAB PO SCH (19:28)
[2019-05-05] MEDS: Acetaminophen 500 MG TAB PO PRN ×3 (02:55→19:57)
[2019-05-05] MEDS: Gabapentin 100 MG CAP PO SCH ×2 (08:50→19:52)
[2019-05-05] MEDS: Amlodipine 5 MG TAB PO SCH (08:50)
[2019-05-05] MEDS: Ferrous Sulfate 325 MG TAB PO SCH (08:51)
[2019-05-05] MEDS: Finasteride 5 MG TAB PO SCH (08:51)
[2019-05-05] MEDS: Saccharomyces boulardii 250 MG CAP PO SCH (08:51)
[2019-05-05] MEDS: Aspirin 81 mg Enteric Coated Tablet PO SCH (08:51)
[2019-05-05] MEDS: Famotidine 20 MG TAB PO SCH ×2 (08:51→19:53)
[2019-05-05] MEDS: Rifampin 150 MG CAP PO SCH ×2 (11:29→21:17)
[2019-05-05] MEDS: Terazosin HCl 5 MG CAP PO SCH (19:52)
[2019-05-05] MEDS: DAPTOmycin 500 MG in Sodium Chloride 0.9% 100 ML IVPB SCH (19:53)
[2019-05-05] MEDS: Donepezil HCl 10 MG TAB PO SCH (19:53)
[2019-05-06] MEDS: Aspirin 81 mg Enteric Coated Tablet PO SCH (09:09)
[2019-05-06] MEDS: Ferrous Sulfate 325 MG TAB PO SCH (09:09)
[2019-05-06] MEDS: Rifampin 150 MG CAP PO SCH ×2 (09:09→20:24)
[2019-05-06] MEDS: Saccharomyces boulardii 250 MG CAP PO SCH (09:09)
[2019-05-06] MEDS: Acetaminophen 500 MG TAB PO PRN ×3 (09:09→23:05)
[2019-05-06] MEDS: Gabapentin 100 MG CAP PO SCH ×2 (09:10→20:24)
[2019-05-06] MEDS: Amlodipine 5 MG TAB PO SCH (09:10)
[2019-05-06] MEDS: Finasteride 5 MG TAB PO SCH (09:11)
[2019-05-06] MEDS: Famotidine 20 MG TAB PO SCH ×2 (09:11→20:25)
[2019-05-06] MEDS: Donepezil HCl 10 MG TAB PO SCH (20:25)
[2019-05-06] MEDS: Terazosin HCl 5 MG CAP PO SCH (20:25)
[2019-05-06] MEDS ORDERED: Haloperidol Lactate 5 MG/ML VIAL ONE (22:09)
[2019-05-06] MEDS: Haloperidol Lactate 5 MG/ML VIAL IM PRN (22:13)
[2019-05-07] MEDS: Famotidine 20 MG TAB PO SCH ×2 (09:47→19:37)
[2019-05-07] MEDS: Aspirin 81 mg Enteric Coated Tablet PO SCH (09:47)
[2019-05-07] MEDS: Ferrous Sulfate 325 MG TAB PO SCH (09:47)
[2019-05-07] MEDS: Saccharomyces boulardii 250 MG CAP PO SCH (09:47)
[2019-05-07] MEDS: Acetaminophen 500 MG TAB PO PRN ×2 (09:48→19:37)
[2019-05-07] MEDS: Finasteride 5 MG TAB PO SCH (09:48)
[2019-05-07] MEDS: Amlodipine 5 MG TAB PO SCH (09:48)
[2019-05-07] MEDS: Gabapentin 100 MG CAP PO SCH ×2 (09:48→19:37)
[2019-05-07] MEDS: Rifampin 150 MG CAP PO SCH ×2 (09:50→21:01)
[2019-05-07] MEDS ORDERED: Haloperidol Lactate 5 MG/ML VIAL ONE (19:31)
[2019-05-07] MEDS: DAPTOmycin 500 MG in Sodium Chloride 0.9% 100 ML IVPB SCH (19:36)
[2019-05-07] MEDS: Haloperidol Lactate 5 MG/ML VIAL IM PRN (19:36)
[2019-05-07] MEDS: Terazosin HCl 5 MG CAP PO SCH (19:36)
[2019-05-07] MEDS: Donepezil HCl 10 MG TAB PO SCH (19:37)
[2019-05-07] MEDS: Ondansetron ODT 4 MG TAB PO PRN (22:20)
[2019-05-08] MEDS: Saccharomyces boulardii 250 MG CAP PO SCH (08:23)
[2019-05-08] MEDS: Ferrous Sulfate 325 MG TAB PO SCH (08:23)
[2019-05-08] MEDS: Famotidine 20 MG TAB PO SCH ×2 (08:23→20:20)
[2019-05-08] MEDS: Gabapentin 100 MG CAP PO SCH ×2 (08:23→20:19)
[2019-05-08] MEDS: Aspirin 81 mg Enteric Coated Tablet PO SCH (08:23)
[2019-05-08] MEDS: Finasteride 5 MG TAB PO SCH (08:23)
[2019-05-08] MEDS: Acetaminophen 500 MG TAB PO PRN ×3 (08:23→23:51)
[2019-05-08] MEDS: Amlodipine 5 MG TAB PO SCH (08:24)
--- NOTE | 2019-05-08 09:26 | RAD ---
2 views of the cervical spine: 05/08/2019 COMPARISON: 04/04/2019 HISTORY: C1 fracture FINDINGS: Frontal and lateral radiograph of the cervical spine provided. Anterior discectomy and fusi on hardware is present with screws associated with C3, C4, C5, and C6, unchanged when compared to the prior examination. The C1 vertebral body is not well assessed on this examination. There has been no significant interval change. There is disc space narrowing and degenerative endplate change at the C2-3 level. IMPRESSION: Stable radiographic evaluation of the cervical spine. The C1 vertebral body is not well a ssessed on this examination. If detailed assessment of the C1 ring is clinically warranted, CT examination of the cervical spine is advised.
[2019-05-08] MEDS: Rifampin 150 MG CAP PO SCH ×2 (09:52→22:34)
[2019-05-08] MEDS ORDERED: Haloperidol Lactate 5 MG/ML VIAL ONE (16:29)
[2019-05-08] MEDS: Haloperidol Lactate 5 MG/ML VIAL IM PRN (16:31)
[2019-05-08] MEDS ORDERED: ALPRAZolam 0.5 MG TAB PO SCH (17:00)
[2019-05-08 19:41] LABS: Bilirubin Negative (Negative); Blood, Urine Negative (Negative); Clarity Clear (Clear); Glucose, Urine (Dipstick) Negative (Negative); Leukocyte Negative (Negative); Nitrite Negative (Negative); Protein, Urine (Dipstick) Negative (Neg-Trace); Urobilinogen 0.2 mg/dL (Less than 2)
[2019-05-08 20:05] LABS: RBC/HPF 0-3 HPF (0-3); Squamous Epithelial 0-3 HPF (0-3); WBC/HPF 0-3 HPF (0-3)
[2019-05-08 20:06] LABS: Bacteria/HPF Rare-Few HPF (None Seen)
[2019-05-08] MEDS: Terazosin HCl 5 MG CAP PO SCH (20:20)
[2019-05-08] MEDS: Donepezil HCl 10 MG TAB PO SCH (20:20)
[2019-05-08] MEDS: Ondansetron ODT 4 MG TAB PO PRN (23:51)
[2019-05-09] MEDS: Acetaminophen 500 MG TAB PO PRN ×2 (05:31→15:37)
[2019-05-09] MEDS: Famotidine 20 MG TAB PO SCH ×2 (08:21→19:47)
[2019-05-09] MEDS: Aspirin 81 mg Enteric Coated Tablet PO SCH (08:21)
[2019-05-09] MEDS: Amlodipine 5 MG TAB PO SCH (08:21)
[2019-05-09] MEDS: Gabapentin 100 MG CAP PO SCH ×2 (08:21→19:46)
[2019-05-09] MEDS: Finasteride 5 MG TAB PO SCH (08:22)
[2019-05-09] MEDS: Saccharomyces boulardii 250 MG CAP PO SCH (08:22)
[2019-05-09] MEDS: Ferrous Sulfate 325 MG TAB PO SCH (08:22)
[2019-05-09] MEDS: Rifampin 150 MG CAP PO SCH ×2 (10:06→20:44)
[2019-05-09] MEDS ORDERED: Haloperidol Lactate 5 MG/ML VIAL ONE (18:09)
[2019-05-09] MEDS: Haloperidol Lactate 5 MG/ML VIAL IM PRN (18:11)
[2019-05-09] MEDS: Donepezil HCl 10 MG TAB PO SCH (19:46)
[2019-05-09] MEDS: Terazosin HCl 5 MG CAP PO SCH (19:46)
[2019-05-09] MEDS ORDERED: DAPTOmycin 500 MG in Sodium Chloride 0.9% 100 ML IVPB SCH (20:00)
[2019-05-10 05:31] LABS: #Eosinphils 0.2 thou/uL (0.0-0.7); #Lymphocytes 0.9 thou/uL (1.20-3.40); #Monocytes 0.6 thou/uL (0.11-0.59); #Neutrophils 3.4 thou/uL (1.40-6.50); %Basophils 0.7 % (0.0-1.0); %Eosinophils 4.7 % (0.0-10.0); %Lymphocytes 16.9 % (21.0-51.0); %Monocytes 11.5 % (0.0-10.0); %Neutrophils 66.2 % (42.0-75.0); Mean Corpuscular HGB CONC 32.7 g/dL (32.0-36.0); Mean Corpuscular Volume 91.8 fL (78.0-98.0); Mean Platelet Volume 5.2 fL (7.4-10.4); Platelet Count 146 thou/uL (130-400); RBC Distribution Width 14.2 % (11.5-14.5); Red Blood Cell (RBC) Count 2.99 mill/uL (4.70-6.10); White Blood Cell (WBC) Count 5.1 thou/uL (4.8-10.8)
[2019-05-10 05:39] LABS: ALT (SGPT) 20 U/L (8-55); AST (SGOT) 22 U/L (5-34); Albumin 3.2 g/dL (3.4-4.8); Alkaline Phosphatase 57 U/L (40-110); Anion Gap 12 mmol/L (10-20); BUN (Urea Nitrogen) 31 mg/dL (8.4-25.7); Bilirubin, Total 0.4 mg/dL (0.2-1.2); Calc. Creatinine Clearance 32 mL/min (70-130); Calcium 9.3 mg/dL (7.8-10.44); Carbon Dioxide 24 mmol/L (23-31); Chloride 106 mmol/L (98-107); Estimated GFR-MDRD 45; Globulin 3.3 g/dL (2.4-3.5); Glucose 127 mg/dL (83-110); Potassium 4.7 mmol/L (3.5-5.1); Protein, Total 6.5 g/dL (5.8-8.1); Sodium 137 mmol/L (136-145)
[2019-05-10 05:55] VITALS: TEMP 99
[2019-05-10] MEDS: Gabapentin 100 MG CAP PO SCH (08:22)
[2019-05-10] MEDS: Rifampin 150 MG CAP PO SCH (08:23)
[2019-05-10] MEDS: Ferrous Sulfate 325 MG TAB PO SCH (08:23)
[2019-05-10] MEDS: Amlodipine 5 MG TAB PO SCH (08:24)
[2019-05-10] MEDS: Finasteride 5 MG TAB PO SCH (08:24)
[2019-05-10] MEDS: Famotidine 20 MG TAB PO SCH (08:24)
[2019-05-10] MEDS: Saccharomyces boulardii 250 MG CAP PO SCH (08:24)
[2019-05-10] MEDS: Aspirin 81 mg Enteric Coated Tablet PO SCH (08:25)
[2019-05-10 08:26] VITALS: BP 127/76
== END 2019-05-10 10:00 | DRG 871 ==
LOC: BURMED 17:03
PROVIDERS: ADMIT Family Medicine; ATTEND Family Medicine
DX: A41.02 Sepsis due to Methicillin resistant Staphylococcus aureus (principal); I33.0 Acute and subacute infective endocarditis; G93.41 Metabolic encephalopathy; E87.1 Hypo-osmolality and hyponatremia; F05 Delirium due to known physiological condition; N17.9 Acute kidney failure, unspecified; T82.6XXD Infection and inflammatory reaction due to cardiac valve prosthesis, subsequent encounter; I25.10 Atherosclerotic heart disease of native coronary artery without angina pectoris; I10 Essential (primary) hypertension; F03.90 Unspecified dementia, unspecified severity, without behavioral disturbance, psychotic disturbance, mood disturbance, and anxiety; K21.9 Gastro-esophageal reflux disease without esophagitis; R53.81 Other malaise; M84.48XD Pathological fracture, other site, subsequent encounter for fracture with routine healing; D64.9 Anemia, unspecified; L89.891 Pressure ulcer of other site, stage 1; Z95.2 Presence of prosthetic heart valve; Z79.82 Long term (current) use of aspirin; Z79.899 Other long term (current) drug therapy
CPT/HCPCS: 36415; 36416; 36430; 72020; 72040; 80048; 80053; 80202; 81001; 82550; 82565; 82570; 83010; 83615; 84300; 85007; 85014; 85018; 85025; 85027; 85049; 85060; 85379; 85384; 85610; 85730; 86140; 86850; 86900; 86901; 86922; 87077; 87086; 87186; J0712; J0878; J1630; J1642; J1650; J1940; J3370; J3490; J7050; P9016; Q0162; Q0163

== ENCOUNTER 2019-07-06 13:20 | Outpatient (CLI) | payer MEDICARE ==
[2019-07-06 17:45] LABS: ALT (SGPT) 15 U/L (8-55); AST (SGOT) 22 U/L (5-34); Alkaline Phosphatase 72 U/L (40-110); Anion Gap 15 mmol/L (10-20); BUN (Urea Nitrogen) 24 mg/dL (8.4-25.7); Bilirubin, Total 0.3 mg/dL (0.2-1.2); CRP (Inflammatory) Less than 0.50 mg/dL (= or < 0.5); Calc. Creatinine Clearance 0 mL/min (70-130); Calcium 9.1 mg/dL (7.8-10.44); Carbon Dioxide 23 mmol/L (23-31); Chloride 98 mmol/L (98-107); Estimated GFR-MDRD 45; Globulin 2.7 g/dL (2.4-3.5); Glucose 97 mg/dL (83-110); Potassium 4.9 mmol/L (3.5-5.1); Protein, Total 6.7 g/dL (5.8-8.1); Sodium 131 mmol/L (136-145)
== END 2019-07-06 13:21 | disposition home or self-care (01) ==
LOC: BURULT 13:20
PROVIDERS: ATTEND Internal Medicine Infectious Disease
DX: I38 Endocarditis, valve unspecified (principal); I08.3 Combined rheumatic disorders of mitral, aortic and tricuspid valves; I51.89 Other ill-defined heart diseases; Q21.0 Ventricular septal defect; Z95.2 Presence of prosthetic heart valve
CPT/HCPCS: 36415; 80053; 86140; 87040; 93306